=== PATIENT | female | born 1955 | race Caucasian/White ===

== ENCOUNTER 2018-09-10 08:54 | Outpatient (REF) | payer OTHER, SELFPAY ==
--- NOTE | 2018-09-10 08:30 | PAPFT_PTH ---
PATIENT: Gerda Bryant LOC: [facility] U#:[id number] AGE/SX: 62/F ROOM: RE09/10/[address]: LEVON Chaves : 1955 BED: DIS: 09/10/2018 SPEC #: [id number] RECD: 09/10/18 12:39 STATUS: NOVA REQ #: [id number] ADDIE: 09/10/18 08:[address]: Stephania Raymond DEPT: [facility] Cytology RECD BY: Miracle Cash ENTERED: 09/10/18 12:39 SP TYPE: PAPFT OT DR: Mg Brady MD Tissues: 1 - CX/ENDOCX FOR PAP SMEARS Procedures: PAP THIN PREP/UVM Screening HPV DNA PROBE Comments: [id number]
== END 2018-09-10 09:14 ==
LOC: LBN 08:54
PROVIDERS: PCP Family Medicine; Visit Provider Nurse Practitioner Family
DX: Z12.4 Encounter for screening for malignant neoplasm of cervix (principal); Z11.51 Encounter for screening for human papillomavirus (HPV)
CPT/HCPCS: 88142; 87624

== ENCOUNTER 2018-10-01 00:24 | Outpatient (CLI) | payer OTHER, SELFPAY ==
--- NOTE | 2018-10-01 08:52 | DI.MAMMO_ITS ---
SYMPTOM/DIAGNOSIS: SCREENING, PERSONAL H/O BREAST CA, Z12.31 MAMMOGRAMS: Mammograms were interpreted according to the usual protocol including computer analysis with CAD system, tomosynthesis and C view imaging. Comparison is made with prior examinations. The patient is status post left mastectomy. Breast density, Category B. No suspicious masses or microcalcifications are seen. There does appear to be interval decrease in size of the nodular density seen in the upper inner quadrant of the right breast. No new or suspicious nodules are seen. The skin and axilla are unremarkable. IMPRESSION: No definite evidence for malignancy. Yearly mammography is recommended. Category 2. MQSA ASSESSMENT OF FINDINGS: Negative with benign findings. Category 2. Patient will receive a letter notifying them of these results. BI-RADS category B. There are scattered areas of fibroglandular density.
== END 2018-10-01 00:44 ==
PROVIDERS: PCP Family Medicine; Visit Provider Nurse Practitioner Family
DX: Z12.31 Encounter for screening mammogram for malignant neoplasm of breast (principal); Z85.3 Personal history of malignant neoplasm of breast
CPT/HCPCS: 77063; 77067

== ENCOUNTER 2019-04-30 15:11 | Outpatient (CLI) | payer OTHER, SELFPAY ==
[2019-04-30 15:38] LABS: HCT 40.3 % (36.0-46.0); HGB 13.3 g/dL (12.0-15.5); Mean Corpuscular Hemoglobin 29.7 pg (27.0-33.0); Mean Platelet Volume 9.1 fL (8.0-11.0); Platelet Count 369 x1000/uL (130-400); RBC 4.48 m/cumm (4.00-5.20); RBC Distribution Width 14.5 % (11.7-14.6); White Blood Cell Count 10.92 k/cumm (4.4-10.8)
[2019-04-30 16:02] LABS: D-Dimer 1899 ng/mlFEU (<500)
[2019-04-30 16:35] LABS: CREATININE 0.71 mg/dL (0.55-1.02); TSH (W/Ref FT4) 0.63 uIU/mL (0.36-3.74)
[2019-04-30 16:41] LABS: GGT 222 U/L (5-55)
== END 2019-04-30 15:31 ==
PROVIDERS: PCP Family Medicine; Visit Provider Family Medicine
DX: R00.0 Tachycardia, unspecified (principal)
CPT/HCPCS: 36415; 85027; 82565; 82977; 84443; 85379

== ENCOUNTER 2019-04-30 16:54 | Emergency (ER) | payer OTHER, SELFPAY ==
[2019-04-30 17:02] VITALS: BP 138/90; PULSE 101; RESP 18; TEMP 37; O2SAT 99
--- NOTE | 2019-04-30 17:13 | DI.CT_ITS ---
EXAM: CT CHEST PE CTA CLINICAL HISTORY: elevated dimer, r/o PE. TECHNIQUE: COMPARISON: No exams were available for comparison FINDINGS: CT angiography of the chest was performed with bolus infusion of 100 cc of Omnipaque 350. Images obt ained through the upper abdomen show unremarkable appearance of visualized portions of liver spleen a drenals kidneys and pancreas. The lungs appear generally clear. No pleural effusion seen. No media stinal or hilar adenopathy. Tracheobronchial tree appears intact. Thoracic aorta is ectatic at about 42 millimeters maximal diameter. There is Lázaro then take area of decreased attenuation in the right main pulmonary artery, this is most likely artifactual, chronic p ulmonary embolus not excluded. No acute pulmonary embolus identified. IMPRESSION: Ectatic thoracic aorta at 42 millimeters A questionable findings in the right main pulmonary artery, question artifact, chronic thrombus not e xcluded. No evidence of acute pulmonary embolus.
--- NOTE | 2019-04-30 17:15 | W.ED.GENAD ---
Discharge Plan Disposition Patient Disposition: HOME Condition: Stable Discharge Details Chief Complaint: Palpitatns Clinical Impression: Suspected pulmonary embolism, D-dimer, elevated, Aortic aneurysm, descending Primary Care Provider: Mg Brady ED Provider: Bryson García Home Meds and New Rx's Prescriptions: New Xarelto 15 mg tablet 15 mg PO BID 21 Days Qty: 42 RF: 0 Discharge Instructions Instructions: Pulmonary Embolism (GEN), Deep Venous Thrombosis (ED), Blood Thinners (ED) Additional Instructions: At this time the CT scan appears to show artifact, meaning that there is not a blood clot however I still have concern that there is certainly may be a blood clot there. The CT scan will be reread by our radiologist Friday. Please return Friday for the ultrasound of your lower extremity to rule out blood clot. In the meantime please take the Xarelto, 15 mg p.o. twice daily first prophylaxis of potential clot. If you notice any worsening of your symptoms, or any new symptoms such as vomiting, diarrhea, fever, chills, shortness of breath, chest pain, numbness, weakness, or fainting , please return immediately to the emergency department for reevaluation. Please follow up with your primary care provider as soon as possible for reassessment and reevaluation. As always, it was a pleasure participating in your medical care today. Referrals: Mg Brady. [Primary Care Provider] - Medical Decision Making This is a 63-year-old female who presents today for evaluation of palpitations. Patient states that one week ago she had mild posterior popliteal tenderness without evidence of trauma long trips surgeries or procedures. She then developed some palpitations along afterwards which resolved on their own. She went to see her PCP today for further evaluation and her d-dimer was notably elevated at 1999. She was sent to the ER for further assessment. She has no risk factors for PE except for previous malignancy. She denies any symptoms whatsoever of chest pain, shortness of breath, chest heaviness or tightness, numbness tingling weakness, or hemoptysis. Physical exam is notably benign. EKG unremarkable. No signs of right heart strain. We will get a CTA for evaluation of potential PE and reassess. 7 PM Laboratory work-up has returned, white count normal, INR PT and PTT and normal, electrolytes normal poor renal function stable, troponin less than 0.05, proBNP normal. EKG shows no evidence of significant right heart strain. CT scan was ordered and per virtual radiology demonstrates no evidence of acute thrombus. There is an atypical component on the imaging which does show an atypical anterior segment of the right main pulmonary artery neck can be seen with an eccentric or chronic PE, however virtual radiology that this is more so a reflection of motion artifact rather than a true PE. However with the patient's notably elevated d-dimer, and the atypical finding on the CT scan I do feel that further work-up is indicated. We will schedule an ultrasound for Friday when it is available. I had a long discussion with the patient regarding the atypical findings on the CT scan, as well as the risks and benefits of anticoagulation therapy until the ultrasound and repeat created by in-house radiologist. At this time weighing the risks and benefits patient would like to go ahead and start anticoagulation. We will start the patient on 15 mg of Xarelto twice daily. She will follow-up on Friday for ultrasound of her left lower extremity where she had her initial symptoms, and will reassess at that time. Currently the patient signs and symptoms are clinically inconsistent with a massive PE causing hemodynamic compromise, ACS, aortic dissection. Also of note there was evidence of a 4 cm descending aortic aneurysm which appears stable. No evidence of dissection. I have extensively reviewed the treatment plan and discharge instructions with the patient and their family. I have addressed all patient concerns at this time. The patient and family was made aware of what symptoms to monitor for that would warrant a return to the emergency department. Discussed the plan with the patient and family, they demonstrate verbal understanding and agreement with our assessment and plan at this time. EKG 17: 13 Rate 93, intervals normal, sinus rhythm, no significant ST elevations or depressions, there is a T wave inversion in V1. There is small Q wave in lead II and III, no broad terminal S wave, no other abnormalities. No evidence of STEMI. No evidence of significant right heart strain FINDINGS: Pulmonary arteries: Eccentric hypodensities in the right pulmonary artery on image 230 series 6 are felt to be related to motion artifact. There are no other discrete filling defect appreciated within the pulmonary arterial system. Pulmonary arterial system is otherwise normal in course and caliber. Great vessels off aortic arch: Normal branching pattern to the aortic arch vessels. Aorta: Aneurysmal dilation of the mid descending thoracic aorta measuring 4 cm in greatest diameter. No acute aortic pathology is appreciated. Lungs: Mild bilateral apical capping. No acute interstitial or airspace disease is appreciated. There is subpleural atelectasis of the dependent portions of the lungs. Pleural space: Unremarkable. No pneumothorax. No pleural effusion. Heart: Unremarkable. No cardiomegaly. No pericardial effusion. Lymph nodes: Unremarkable. No enlarged lymph nodes. Bones/joints: No acute abnormality or aggressive osseous lesion. Soft tissues: Question of left mastectomy. No acute thoracic wall so evident ft tissue findings. Other findings: The visualized intra-abdominal structures demonstrate no acute findings. IMPRESSION: 1. Findings in the anterior segment of the right main pulmonary artery could be seen with an eccentric/chronic PE, however considering that similar findings are seen in the posterior segment as well, artifact from cardiac motion is also likely. Consider followup if clinically warranted. No acute PE is appreciated. 2. No other acute thoracic pathology is appreciated. THIS REPORT CONTAINS FINDINGS THAT MAY BE CRITICAL TO PATIENT CARE. The findings were verbally communicated via telephone conference with BRYSON GARCÍA at 6:05 PM EDT on 04/30/2019. The findings were acknowledged and understood. Thank [facility] General Date/Time Provider Initiated Documentation: 04/30/19 17:00. [facility] Narrative: This is a 63-year-old female with no past medical history except for history of breast cancer years ago, who presents today for evaluation of palpitations. Patient states that one week ago she had mild tenderness behind her left knee that was only present for a day and then resolved on its own. She noticed some mild palpitations at that time as well 5 days ago. However she states that all the symptoms resolved on their own. She went to see her PCP today who noticed that she was also tachycardic at that time, ordered a d-dimer which was notably positive and elevated at 2000. No other complaints, hemodynamically stable. She was sent to the ER for further assessment which is certainly reasonable. Currently the patient has no complaints whatsoever. She denies chest pain shortness of breath pleuritic chest pain. Denies PE risk factors such as recent long car rides, immobilization, recent surgery, prior history of DVT or PE, family history of PE or DVT, morbid obesity, exogenous estrogen and smoking, hemoptysis. She does have a risk factor of previous breast cancer years ago but nothing else. She did have a single mastectomy which completely resolved the malignancy. No other complaints modifying factors at this time. Related Data Home Medications Medication Instructions Recorded Confirmed rivaroxaban [Xarelto] 15 mg PO BID 21 Days #42 tab 04/30/19 Previous Rx's Medication Instructions Recorded rivaroxaban [Xarelto] 15 mg PO BID 21 Days #42 tab 04/30/19 Allergies Allergy/AdvReac Type Severity Reaction Status Date / Time No Known Allergies Allergy Verified 04/30/19 17:08 General Stated Complaint: Palpitatns SHAUNA: 3 Review of Systems Review of Systems ROS Unobtainable: All systems reviewed & are unremarkable except as noted in HPI and below PFSH Family History (Updated 04/30/19 @ 14:37 by Mg Brady) Mother Essential hypertension Neoplasm THYROID Aneurysm and dissection of heart ? asc. 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 3.ENT: Atraumatic external nose and ears. Moist MM. Neck: Symmetric, trachea midline, No thyromegaly. 4.CVS: +S1/S2, No murmurs or gallops. Peripheral pulses 2+ and equal in all extremities. Brisk capillary refill in all extremities. 5.RESP: Unlabored respiratory effort. Clear to auscultation bilaterally. No wheezes rales or rhonchi 6.GI: Soft, Nontender/Nondistended, No hepatosplenomegaly. No guarding or rebound. 7.MSK: Normocephalic/Atraumatic, Extremities w/o deformity or ttp No cyanosis or clubbing, Normal movement of all extremities, no calf tenderness, negative Homans sign. 8.Skin: Warm, Dry. No rashes or lesions. 9.Neuro: swimming pool cleaner II-XII grossly intact. Sensation grossly intact, no focal neurologic deficits. 10.Psych: (AAO) x3. Appropriate mood and affect Course Vital Signs Vital signs: Vital Signs Temperature 37 C 04/30/19 17:02 Pulse 101 H 04/30/19 17:02 Respiratory Rate 18 04/30/19 17:02 Blood Pressure 138/90 04/30/19 17:02 Pulse Oximetry 99 04/30/19 17:02 Temperature 37 C 04/30/19 17:02 Temperature Source Skin 04/30/19 17:02 Pulse 101 H 04/30/19 17:02 Respiratory Rate 18 04/30/19 17:02 Blood Pressure 138/90 04/30/19 17:02 Blood Pressure Position Sitting 04/30/19 17:02 Pulse Oximetry 99 04/30/19 17:02 Oxygen Delivery Method Room Air 04/30/19 17:02 Oxygen Flow Rate 0 04/30/19 17:02 Pain Level 0 04/30/19 17:02
[2019-04-30] MEDS: Normal Saline 1,000 ML 1000 ML IV (17:18)
[2019-04-30 17:25] LABS: Abs Immature Grans 0.03 k/cumm (0.0-0.09); Absolute Basophil Count 0.02 k/cumm (0.0-0.2); Absolute Eosinophil Count 0.07 k/cumm (0.0-0.7); Absolute Lymphocyte Count 1.67 k/cumm (1.2-3.4); Absolute Monocyte Count 1.01 k/cumm (0.11-0.7); Absolute Neutrophil Count 7.65 k/cumm (1.2-6.7); Basophils % 0.2; Eosinophils % 0.7; HCT 40.7 % (36.0-46.0); HGB 13.3 g/dL (12.0-15.5); Immature Grans % 0.3; Mean Corp. HGB Concentration 32.7 g/dL (32.0-36.0); Mean Corpuscular Hemoglobin 29.6 pg (27.0-33.0); Mean Corpuscular Volume 90.6 fL (80-95); Monocytes % 9.7; Neutrophils % 73.1; Platelet Count 346 x1000/uL (130-400); RBC 4.49 m/cumm (4.00-5.20); RBC Distribution Width 14.4 % (11.7-14.6); White Blood Cell Count 10.45 k/cumm (4.4-10.8)
[2019-04-30] MEDS: Omnipaque 350 MG/ML 100 ML BTL IJ (17:44)
[2019-04-30 17:54] LABS: ALT 35 U/L (14-59); AST 24 U/L (15-37); Albumin 3.7 g/dL (3.4-5.0); Alkaline Phosphatase 146 U/L (46-116); Anion Gap 9.8 mmol/L (3-11); BUN 14 mg/dL (7-18); Bilirubin, Total 0.4 mg/dL (0.2-1.0); CO2 28.2 mmol/L (21.0-32.0); CREATININE 0.79 mg/dL (0.55-1.02); Calcium 9.6 mg/dL (8.5-10.1); Chloride 103 mmol/L (98-107); Glucose 93 mg/dL (70-100); NT-proBNP 73 pg/mL; Potassium 3.5 mmol/L (3.5-5.1); Sodium 141 mmol/L (136-145); Total Protein 7.7 g/dL (6.4-8.2)
[2019-04-30 17:55] LABS: Troponin I < 0.05 ng/mL (0.00-0.06)
[2019-04-30 18:02] LABS: PTT Activated 26.7 sec (21.0-31.4); Prothrombin Time 9.8 sec (9.3-11.0)
[2019-04-30] MEDS: Rivaroxaban 15 MG TABLET PO (18:28)
[2019-04-30 18:33] VITALS: BP 150/88; PULSE 75; RESP 18; O2SAT 98
[2019-04-30 18:55] VITALS: BP 136/89; PULSE 74; RESP 18; TEMP 37.2; O2SAT 99
[2019-04-30 19:01] VITALS: BP 139/86; PULSE 89; TEMP 36.5
== END 2019-04-30 18:55 | disposition home or self-care (01) ==
PROVIDERS: Emergency Provider Student in an Organized Health Care Education/Training Program; PCP Family Medicine
DX: R91.1 Solitary pulmonary nodule (principal); I71.2 Thoracic aortic aneurysm, without rupture; R79.89 Other specified abnormal findings of blood chemistry
CPT/HCPCS: 36415; 71275; 80053; 93005; 96360; 99285; 83880; 84484; 85025; 85610; 85730; 93010; J3490

== ENCOUNTER 2019-05-03 06:57 | Outpatient (CLI) | payer OTHER, SELFPAY ==
--- NOTE | 2019-05-03 11:00 | DI.US_ITS ---
EXAM: US LOWER EXTREMITY VENOUS LT CLINICAL HISTORY: ELEVATED D-DIMER, POSTERIOR KNEE PAIN, ? DVT. TECHNIQUE: Ultrasound performed using standard protocol. COMPARISON: No exams were available for comparison FINDINGS: Ultrasound of the left leg reveals no evidence of DVT.
== END 2019-05-03 07:17 ==
PROVIDERS: PCP Family Medicine; Visit Provider Student in an Organized Health Care Education/Training Program
DX: M25.562 Pain in left knee (principal); R79.1 Abnormal coagulation profile
CPT/HCPCS: 93971

== ENCOUNTER 2019-07-01 03:18 | Outpatient (CLI) | payer OTHER, SELFPAY ==
[2019-07-01 10:13] LABS: D-Dimer 411 ng/mlFEU (<500)
== END 2019-07-01 03:38 ==
PROVIDERS: PCP Family Medicine; Visit Provider Family Medicine
DX: R79.89 Other specified abnormal findings of blood chemistry (principal)
CPT/HCPCS: 36415; 85379

== ENCOUNTER 2019-07-30 03:27 | Emergency (ER) | payer OTHER, SELFPAY ==
[2019-07-30] VITALS (15 sets, daily range): BP systolic 91–126; BP diastolic 73–88; PULSE 74–137; RESP 8–32; TEMP 36.1; O2SAT 93–99
--- NOTE | 2019-07-30 03:50 | ED.GENADUL_ITS ---
Discharge Plan Disposition Patient Disposition: HOME Condition: Good Discharge Details Chief Complaint: Palpitatns Clinical Impression: SVT (supraventricular tachycardia) Primary Care Provider: Mg Brady ED Provider: Chad Santizo Home Meds and New Rx's Prescriptions: Changed metoprolol tartrate 25 mg tablet 37.5 mg PO BID Qty: 180 RF: 3 Discharge Instructions Instructions: Supraventricular Tachycardia (ED) Additional Instructions: Please take 1-1/2 tablets of your metoprolol twice a day. Follow-up with your primary care next week. Please make appointment with cardiology within the next 2 to 3 weeks. Return to ED if you develop persistent palpitations that do not resolve with vagal maneuvers in 5 to 10 minutes. Return if you develop syncope, chest pain, shortness of breath. Referrals: [facility] [Provider Group] - 2 weeks (for SVT requiring adenosine to convert) Mg Brady [Primary Care Provider] - 1 week Medical Decision Making Patient found to be in an SVT. Vagal maneuvers and carotid massage without any change. Patient given 6 mg of adenosine with breaking of her SVT into sinus rhythm. She is currently on metoprolol 25 mg twice a day. Assuming electrolytes and TSH are fine like they were in April we will increase her dosage to 50 twice a day and refer to cardiology. Patient's laboratory studies are fine. She has remained in a sinus rhythm in the 80s. Blood pressure at times noticed to be a little soft. She reports that typically they are fine, if anything high. For now I will increase her to 1-1/2 tablets of the metoprolol twice a day. We will have her follow-up with her primary care next week and refer to cardiology for follow-up in a couple of weeks. Return to ED for recurrent symptoms that do not resolve after 5 or 10 minutes, chest pain, shortness of breath, syncope. Medical Records Medical records reviewed: Yes I reviewed the patient's medical records. Lab Data Lab results reviewed: Yes I reviewed the patient's lab results. ECG Data Attestation: I personally reviewed and interpreted this ECG (s) as follows: Interpretation: EKG #1: SVT at a rate of 135. Normal axis and intervals. Diffuse ST depressions throughout likely rate related. EKG #2: Sinus rhythm at a rate of 83. Normal axis and intervals. Normal ST segments. HPI General Mode of arrival: ambulatory . Date/Time Provider Initiated Documentation: 07/30/19 03:35 . Limitations to Documentation: no limitations . Information obtained by: patient, RN notes reviewed and old records reviewed . HPI Narrative: Patient presents to emergency department with palpitations. Patient reports waking up from a bad dream. Subsequently noticed heart racing which she thought would resolve as she calmed down but it did not. She has now had a heart racing and palpitation for about an hour. She denies any other symptomatology. There is no chest pain or pressure. There is no shortness of breath. There is no lightheadedness or dizziness. She has not been ill with any vomiting or diarrhea. There has been no fever. She had a similar event that only lasted maybe 5 minutes back in April. Subsequent work-up was questionable for PE but that was proven to probably be over-read by preliminary radiology. She did find out that she had an aortic aneurysm for which she has seen vascular at [facility]. For now they are simply watching it. As part of that work-up she did have an echo which revealed normal heart function with normal valves and normal aortic root. Related Data Home Medications Medication Instructions Recorded Confirmed metoprolol tartrate 37.5 mg PO BID #180 tab 07/30/19 Previous Rx's Medication Instructions Recorded metoprolol tartrate 37.5 mg PO BID #180 tab 07/30/19 Allergies Allergy/AdvReac Type Severity Reaction Status Date / Time No Known Allergies Allergy Verified 05/04/19 10:26 General Stated Complaint: Palpitatns SHAUNA: 2 Review of Systems Narrative: As documented in HPI otherwise negative as below. Const: no fever, chills, weakness Resp: no cough, SOB, pleuritic pain CV: no CP, diaphoresis, edema, syncope GI: no abdominal pain, nausea, vomiting, diarrhea Neuro: no headache, numbness, focal weakness, confusion [facility] Medical History (Updated 07/30/19 @ 03:58 by Chad Santizo MD) Hx of malignant neoplasm of female breast (Chronic) 1991- s/p mastectomy SVT (supraventricular tachycardia) (Acute) Thoracic aneurysm without mention of rupture (Acute) Surgical History Biopsy, Soft Tissue (09/29/17) right breast Breast, Mastectomy (~1991) left breast Family History (Updated 05/03/19 @ 08:44 by Rahul Deshpande) Mother Essential hypertension Aneurysm and dissection of heart ? asc. aorta Thyroid cancer Father , age 73 Essential hypertension Parkinson's disease Thyroid cancer Paternal Grandfather Heart disease Maternal Grandmother Essential hypertension Paternal Grandmother Heart disease Sister No problems noted. Sister No problems noted. Brother No problems noted. Brother No problems noted. Brother No problems noted. Brother No problems noted. Son No problems noted. Son No problems noted. Daughter No problems noted. 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 Pets and animals: No Sexually active: Yes Do you think of yourself as: straight/heterosexual Current gender identity: decline to answer What is your relationship status?: How often do you talk on the phone with friends or family?: three or more times per week How often do you get together with friends or relatives?: three or more times per week How often do you attend religion or buddhism services?: decline to answer Do you belong to any clubs or organized social groups?: yes Panel score (0-1 are the most socially isolated patients): 3 What type of physical activity do you participate in: none Frequency: does not exercise Daphney/Yazidi: Latter Day Special daphney needs: No Seatbelt use: always Drive intox or ride w/intox 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 Tachycardic with normal blood pressure. Normal room air pulse ox. Const: WDWN female in NAD. HEENT: NC/AT. Normal facial exam. Eyes: Normal conjunctiva and sclera. Neck: Supple. Trachea midline. No carotid bruit. Lungs: Normal respiratory effort. Lungs are clear. Cor: RRR without murmur/gallop. Good radial pulses. GI: Soft. NT/ND. No guarding or rebound. Neuro: A+O x 3. Normal mentation, speech, gait. No focal motor or sensory deficits noted. Ext: No C/C/E. Skin: Warm and dry without rash. Course Vital Signs Vital signs: Vital Signs Temperature 97.0 F L 07/30/19 03:32 Pulse 137 H 07/30/19 03:32 Respiratory Rate 20 07/30/19 03:32 Blood Pressure 126/84 07/30/19 03:32 Pulse Oximetry 93 L 07/30/19 03:32 Temperature 97.0 F L 07/30/19 03:32 Temperature Source Skin 07/30/19 03:32 Pulse 137 H 07/30/19 03:32 Respiratory Rate 20 07/30/19 03:32 Respiratory Effort 07/30/19 03:32 Blood Pressure 126/84 07/30/19 03:32 Pulse Oximetry 93 L 07/30/19 03:32 Oxygen Delivery Method Room Air 07/30/19 03:32 Oxygen Flow Rate 0 07/30/19 03:32 Pain Level 0 07/30/19 03:32
[2019-07-30] MEDS: Adenosine 6 MG/2 ML VIAL IVP (03:57)
--- NOTE | 2019-07-30 03:57 | NUR.NOTE ---
Nursing Note: Pt heart rate down to 88 after adenosine.
[2019-07-30 04:28] LABS: Anion Gap 10.2 mmol/L (3-11); BUN 16 mg/dL (7-18); CO2 28.8 mmol/L (21.0-32.0); CREATININE 0.85 mg/dL (0.55-1.02); Calcium 9.7 mg/dL (8.5-10.1); Chloride 105 mmol/L (98-107); Glucose 102 mg/dL (74-106); Potassium 3.7 mmol/L (3.5-5.1); Sodium 144 mmol/L (136-145)
[2019-07-30 04:35] LABS: Magnesium 1.8 mg/dL (1.8-2.4)
[2019-07-30 04:53] LABS: FREE T4 1.04 ng/dL (0.76-1.46)
== END 2019-07-30 06:20 | disposition home or self-care (01) ==
PROVIDERS: Emergency Provider Emergency Medicine; PCP Family Medicine
DX: I47.1 Supraventricular tachycardia (principal)
CPT/HCPCS: 36415; 80048; 93005; 96374; 99284; 83735; 84439; 84443; 93010; 99285; J0153

== ENCOUNTER 2019-08-12 03:53 | Outpatient (CLI) | payer OTHER, SELFPAY ==
--- NOTE | 2019-08-30 08:30 | W.ZIOMONITOR ---
Date of service: 08/30/19 Time of Service: 08:30 ZIO Patch [employer] Note: There is a 2-week ZIO patch ordered for an indication of supraventricular tachycardia. ?The patient was in normal sinus rhythm for the majority of the recording. ?There was one episode of supraventricular tachycardia which lasted 5 beats at a maximum rate of 124 bpm. ?There were isolated (less than 1%) supraventricular ectopic beats. ?There were no episodes of ventricular tachycardia and rare (less than 1%) single ventricular ectopic beats. ?There were no pauses greater than 3 seconds no evidence of atrial fibrillation and no episodes of high degree heart block. ?Patient triggered events were associated with sinus rhythm.
== END 2019-08-12 04:13 ==
PROVIDERS: PCP Family Medicine; Visit Provider Family Medicine
DX: I47.1 Supraventricular tachycardia (principal)
CPT/HCPCS: 0296T

== ENCOUNTER 2019-09-27 08:44 | Outpatient (CLI) | payer OTHER, SELFPAY | END 2019-09-27 09:04 | PROVIDERS: PCP Family Medicine; Visit Provider Internal Medicine Cardiovascular Disease | DX: I47.1 Supraventricular tachycardia (principal) | CPT/HCPCS: 93005; 93010 ==

== ENCOUNTER 2019-10-11 01:40 | Outpatient (CLI) | payer OTHER, SELFPAY ==
--- NOTE | 2019-10-11 08:00 | DI.MAMMO_ITS ---
EXAM: MG MAMMO SCREENING 60 MIN DUR CLINICAL HISTORY: Personal Hx breast Ca TECHNIQUE: Mammograms were interpreted according to the usual protocol including computer analysis w eBrisk Video CAD system, tomosynthesis and C-view imaging. COMPARISON: 2009 through 2018 FINDINGS: Right mammogram: The right breast is composed of scattered fibroglandular densities, Breast Density c ategory B. No suspicious masses or suspicious microcalcifications are seen. A stable area of nodularity is note d in the posteromedial breast. No skin thickening or abnormal axillary lymph nodes are seen. There has been no significant change from prior exams. IMPRESSION: BIRADS Category 2, negative mammogram with benign findings. Yearly screening mammography is recommen ded.
== END 2019-10-11 02:00 ==
PROVIDERS: PCP Family Medicine; Visit Provider Nurse Practitioner Family
DX: Z12.31 Encounter for screening mammogram for malignant neoplasm of breast (principal); Z85.3 Personal history of malignant neoplasm of breast; Z90.12 Acquired absence of left breast and nipple
CPT/HCPCS: 77063; 77067

== ENCOUNTER 2020-05-05 02:18 | Outpatient (CLI) | payer OTHER, SELFPAY ==
[2020-05-05 08:26] LABS: Calculated LDL 119 mg/dL (<100); Cholesterol 225 mg/dL (<200); Glucose 82 mg/dL (74-106); HDL Cholesterol 96 mg/dL (40-60); TSH (W/Ref FT4) 1.47 uIU/mL (0.36-3.74); Triglyceride 51 mg/dL (<150)
== END 2020-05-05 02:38 ==
PROVIDERS: PCP Family Medicine; Visit Provider Family Medicine
DX: E03.9 Hypothyroidism, unspecified (principal); E78.5 Hyperlipidemia, unspecified; R73.9 Hyperglycemia, unspecified
CPT/HCPCS: 36415; 80061; 82947; 84443

== ENCOUNTER 2020-10-19 12:07 | Outpatient (CLI) | payer MEDICARE, BC, SELFPAY ==
--- NOTE | 2020-10-19 06:45 | DI.MAMMO_ITS ---
EXAM: MG MAMMO SCREENING 60 MIN DUR CLINICAL HISTORY: breast cancer screening,S/P LT MASTECTOMY FOR BREAST CA,Z12.39 TECHNIQUE: Right full field digital CC and MLO mammographic images were obtained with 3D tomosynthes is and utilizing computer aided detection (CAD). COMPARISON: Available for comparison. FINDINGS: The patient is status post left mastectomy. Masses/Architectural Distortion: Stable right breast nodules are noted. No suspicious masses or area s of architectural distortion are identified. Microcalcifications: No suspicious pleomorphic-type are seen. Skin Thickening/Nipple Retraction: None. IMPRESSION: 1. No significant interval change with no specific features of malignancy noted. 2. Unless there is more urgent need, screening mammography is recommended, as per [employer] [employer] guidelines. BI-RADS Category 2 - Benign Findings Breast Density - Category B - Scattered areas of fibroglandular density Breast density category C or D implies that the patient has dense breast tissue. Dense breast tissue is very common and is not abnormal but dense breast tissue can make it harder to find cancer on a ma mmogram. Also, dense breast tissue may increase their breast cancer risk. This information about the result of the mammogram report was provided to the patient to raise their awareness. Use this report when you speak with the patient about their risks for breast cancer, which includes their family hist ory. At that time, you may recommend for more screening tests (Ultrasound or MRI) as they might be us eful based on their risk. A negative radiographic report should not delay biopsy if a dominant or clinically suspicious mass is present. Up to ten percent of cancers are not identified on mammography. A negative report may reinforce clinical impression. Adenosis and dense breasts may obscure an underlying neoplasm. False positive reports average 6 to 10%. Patient will receive a letter notifying them of these results.
== END 2020-10-19 12:27 ==
PROVIDERS: PCP Family Medicine; Visit Provider Nurse Practitioner Family
DX: Z12.31 Encounter for screening mammogram for malignant neoplasm of breast (principal); Z85.3 Personal history of malignant neoplasm of breast; Z90.12 Acquired absence of left breast and nipple
CPT/HCPCS: 77063; 77067

== ENCOUNTER → 2021-03-19 08:50 | Outpatient (BNVA) | payer MEDICARE, BC, SELFPAY | PROVIDERS: PCP Family Medicine; Visit Provider Internal Medicine Cardiovascular Disease | DX: I47.1 Supraventricular tachycardia (principal); I71.2 Thoracic aortic aneurysm, without rupture | CPT/HCPCS: 99214; 99213 ==

== ENCOUNTER 2021-06-19 10:10 | Outpatient (CLI) | payer MEDICARE, BC, SELFPAY ==
[2021-06-20 01:38] LABS: Calcium 9.2 mg/dL (8.5-10.1); Glucose 78 mg/dL (74-106)
[2021-06-20 01:39] LABS: Anion Gap 8.4 mmol/L (3-11); BUN 15 mg/dL (7-18); CO2 28.6 mmol/L (21.0-32.0); CREATININE 0.7 mg/dL (0.55-1.02); Calculated LDL 125 mg/dL (<100); Chloride 105 mmol/L (98-107); Cholesterol 237 mg/dL (<200); HDL Cholesterol 95 mg/dL (40-60); Potassium 4.3 mmol/L (3.5-5.1); Sodium 142 mmol/L (136-145); Triglyceride 87 mg/dL (<150)
== END 2021-06-19 10:11 | disposition home or self-care (01) ==
LOC: LOS 10:11
PROVIDERS: PCP Family Medicine; Visit Provider Family Medicine
DX: E87.1 Hypo-osmolality and hyponatremia (principal); E78.5 Hyperlipidemia, unspecified
CPT/HCPCS: 36415; 80048; 80061

== ENCOUNTER 2022-03-06 04:01 | Outpatient (CLI) | payer MEDICARE, BC, SELFPAY ==
[2022-03-06 12:02] LABS: TSH (W/Ref FT4) 1.18 uIU/mL (0.36-3.74)
== END 2022-03-06 04:02 | disposition home or self-care (01) ==
LOC: LBO 04:01
PROVIDERS: PCP Student in an Organized Health Care Education/Training Program; Visit Provider Student in an Organized Health Care Education/Training Program
DX: I47.1 Supraventricular tachycardia (principal); N28.9 Disorder of kidney and ureter, unspecified; Z83.49 Family history of other endocrine, nutritional and metabolic diseases
CPT/HCPCS: 36415; 84443

== ENCOUNTER → 2022-03-13 09:02 | Outpatient (CLI) | payer MEDICARE, BC, SELFPAY ==
--- NOTE | 2022-03-13 07:30 | DI.RAD_ITS ---
Exam(s) XR TOE LT SECOND EXAM: XR TOE LT SECOND CLINICAL HISTORY: 2nd toe MUCOID cyst - eval distal joint,M67.40. TECHNIQUE: 2D digital imaging was performed. Three views. COMPARISON: No exams were available for comparison FINDINGS: BONES: No acute fracture is present. No bony destructive lesion is seen. JOINTS: No dislocation present. Interphalangeal joint spaces are well maintained. SOFT TISSUE: Swelling around distal phalanx of 2nd toe. No discrete mass, foreign body or calcificat ion visible. IMPRESSION: Soft tissue swelling around 2nd toe. No bony abnormality. DATA REPOSITORY: RADIATION DOSE DELIVERED:
== END ==
PROVIDERS: PCP Student in an Organized Health Care Education/Training Program; Visit Provider Student in an Organized Health Care Education/Training Program
DX: M67.40 Ganglion, unspecified site (principal); R22.42 Localized swelling, mass and lump, left lower limb
CPT/HCPCS: 73660

== ENCOUNTER → 2022-04-08 02:42 | Outpatient (CLI) | payer MEDICARE, BC, SELFPAY ==
--- NOTE | 2022-04-08 07:30 | DI.MAMMO_ITS ---
Exam(s) MG MAMMO SCREENING 60 MIN DUR EXAM: MG MAMMO SCREENING 60 MIN DUR CLINICAL HISTORY: breast cancer screening, hx breast ca, Z12.39 TECHNIQUE: Bilateral full field digital CC and MLO mammographic images were obtained with 3D tomosyn thesis and utilizing computer aided detection (CAD). COMPARISON: Available for comparison. FINDINGS: Status post left mastectomy. Masses/Architectural Distortion: No suspicious masses or areas of architectural distortion. There is stable right breast nodules. Microcalcifications: No suspicious pleomorphic-type are seen. Skin Thickening/Nipple Retraction: None. IMPRESSION: 1. No significant interval change with no specific features of malignancy noted. 2. Unless there is more urgent need, screening mammography is recommended, as per [employer] guidelines. 3. Findings were discussed with the patient on the date of the examination. BI-RADS Category 2 - Benign Findings Breast Density - Category B - Scattered areas of fibroglandular density Breast density category C or D implies that the patient has dense breast tissue. Dense breast tissue is very common and is not abnormal but dense breast tissue can make it harder to find cancer on a ma mmogram. Also, dense breast tissue may increase their breast cancer risk. This information about the result of the mammogram report was provided to the patient to raise their awareness. Use this report when you speak with the patient about their risks for breast cancer, which includes their family hist ory. At that time, you may recommend for more screening tests (Ultrasound or MRI) as they might be us eful based on their risk. A negative radiographic report should not delay biopsy if a dominant or clinically suspicious mass is present. Up to ten percent of cancers are not identified on mammography. A negative report may reinforce clinical impression. Adenosis and dense breasts may obscure an underlying neoplasm. False positive reports average 6 to 10%. Patient will receive a letter notifying them of these results.
== END ==
PROVIDERS: PCP Student in an Organized Health Care Education/Training Program; Visit Provider Student in an Organized Health Care Education/Training Program
DX: Z12.31 Encounter for screening mammogram for malignant neoplasm of breast (principal); Z85.3 Personal history of malignant neoplasm of breast; Z90.12 Acquired absence of left breast and nipple
CPT/HCPCS: 77063; 77067

== ENCOUNTER → 2022-04-19 00:14 | Outpatient (CLI) | payer MEDICARE, BC, SELFPAY ==
--- NOTE | 2022-04-19 07:30 | DI.DEXA_ITS ---
Exam(s) XR DEXA BONE DENSITY W/WO DANYA EXAM: XR DEXA BONE DENSITY W/WO DANYA CLINICAL HISTORY: screening for osteoporosis in postmenopausal woman,z78.0, h/o breast ca TECHNIQUE: COMPARISON: No exams were available for comparison FINDINGS: Lateral Spine Image: Unremarkable. No compression deformities identified. Left hip: Total T-Score: -0.5 Total Z-Score: 0.8 T- and Z-scores: Within normal limits. No evidence of osteoporosis. Lumbar Spine: Total T-Score: -0.8 Total Z-Score: 1.1 T- and Z-scores: Within normal limits. IMPRESSION: No evidence of osteoporosis.
== END ==
PROVIDERS: PCP Student in an Organized Health Care Education/Training Program; Visit Provider Student in an Organized Health Care Education/Training Program
DX: Z77.22 Contact with and (suspected) exposure to environmental tobacco smoke (acute) (chronic) (principal); Z78.0 Asymptomatic menopausal state; Z13.820 Encounter for screening for osteoporosis
CPT/HCPCS: 77080

== ENCOUNTER 2022-10-03 12:36 | Outpatient (CLI) | payer MEDICARE, BC, SELFPAY ==
[2022-10-03 12:37] LABS: ALT 28 U/L (14-59); AST 19 U/L (15-37); Albumin 4.1 g/dL (3.4-5.0); Alkaline Phosphatase 73 U/L (46-116); Anion Gap 6.1 mmol/L (3-11); BUN 14 mg/dL (7-18); Bilirubin, Total 0.5 mg/dL (0.2-1.0); CO2 30.9 mmol/L (21.0-32.0); CREATININE 0.8 mg/dL (0.55-1.02); Calcium 9.7 mg/dL (8.5-10.1); Calculated LDL 108 mg/dL (<100); Chloride 104 mmol/L (98-107); Cholesterol 234 mg/dL (<200); Estimated GFR 80.21 (mL/min/1.73m2); Glucose 87 mg/dL (74-106); HDL Cholesterol 112 mg/dL (40-60); Potassium 4.3 mmol/L (3.5-5.1); Sodium 141 mmol/L (136-145); Total Protein 7.2 g/dL (6.4-8.2); Triglyceride 73 mg/dL (<150)
== END 2022-10-03 12:37 | disposition home or self-care (01) ==
LOC: LBO 12:37
PROVIDERS: PCP Student in an Organized Health Care Education/Training Program; Visit Provider Student in an Organized Health Care Education/Training Program
DX: E86.0 Dehydration (principal); E46 Unspecified protein-calorie malnutrition; R74.8 Abnormal levels of other serum enzymes; E78.89 Other lipoprotein metabolism disorders
CPT/HCPCS: 36415; 80053; 80061

== ENCOUNTER 2022-12-04 01:57 | Outpatient (CLI) | payer MEDICARE, BC, SELFPAY ==
--- NOTE | 2022-12-04 06:47 | DI.MRI_ITS ---
Exam(s) MR ABDOMEN WO/W EXAM: MR ABDOMEN WO/W CLINICAL HISTORY: F/U ABNL CT, HYPOATTEN FOCUS,ABD MASS,R19.00,R93.89,K31.89,K86.2 TECHNIQUE: Multiplanar multisequence MRI of the Abdomen was performed. CONTRAST MATERIAL: IV Contrast: 11 mL of Dotarem contrast administered. COMPARISON: CT CT CHEST PE CTA from 04/30/2019 FINDINGS: Liver: Unremarkable. Pancreas: Unremarkable. No evidence of mass. No ductal dilatation. Elongated fluid collection seen between the head of the pancreas and transverse duodenum measuring 2 0 x 9 by 6 millimeters. It is best seen on coronal sequences. It does not have a masslike appearanc e. No evidence of enhancement within or surrounding. Gallbladder and Bile Ducts: Unremarkable. Adrenals: Unremarkable. Kidneys: Unremarkable. Spleen: Unremarkable. A few tiny cysts are seen. Aorta: Unremarkable. Soft Tissues: Status post left mastectomy. Bone: Unremarkable. Lymph Nodes: Unremarkable. IMPRESSION: Elongated fluid collection superior to transverse duodenum and medial to the uncinate process of the pancreas without suspicious features. Follow-up could be considered in 3-6 months. DATA REPOSITORY:
[2022-12-04] MEDS: Normal Saline - Diluent 50 ML VIAL 25 ML IJ (08:04)
[2022-12-04] MEDS: Gadoterate meglumine 20 ML VIAL 11 ML IVP (08:05)
== END 2022-12-04 02:17 ==
LOC: DI 01:57
PROVIDERS: PCP Student in an Organized Health Care Education/Training Program; Visit Provider Student in an Organized Health Care Education/Training Program
DX: K31.89 Other diseases of stomach and duodenum (principal); K86.2 Cyst of pancreas; Q43.8 Other specified congenital malformations of intestine; Q45.3 Other congenital malformations of pancreas and pancreatic duct; R19.00 Intra-abdominal and pelvic swelling, mass and lump, unspecified site; R93.89 Abnormal findings on diagnostic imaging of other specified body structures
CPT/HCPCS: 74183

== ENCOUNTER → 2023-06-02 02:54 | Outpatient (CLI) | payer MEDICARE, BC, SELFPAY ==
--- NOTE | 2023-06-02 07:15 | DI.MAMMO_ITS ---
Exam(s) MG MAMMO SCREENING 60 MIN DUR EXAM: MG MAMMO SCREENING 60 MIN DUR CLINICAL HISTORY: breast cancer screening,personal h/o breast ca,abnl imaging,post mastectomy. TECHNIQUE: Bilateral full field digital CC and MLO mammographic images were obtained with 3D tomosyn thesis and utilizing computer aided detection (CAD). COMPARISON: Prior mammograms were reviewed. FINDINGS: There has been no significant change in the appearance and distribution of the fibroglandular tissue. There are no new spiculated masses nor malignant appearing microcalcification groups. A few benign-a ppearing microcalcifications are again noted. Small benign-appearing nodules located inferolaterally in the right breast are unchanged from prior s tudies and have the appearance of benign intramammary lymph nodes. There is no significant architectural distortion nor skin thickening-retraction. IMPRESSION: Stable benign-appearing right breast findings. No radiographic evidence of malignancy. BI-RADS Category 2 - Benign Findings Breast Density - Category B - Scattered areas of fibroglandular density Breast density Category C or D implies that the patient has dense breast tissue. Dense breast tissue can make it harder to find cancer on a mammogram. Dense breast tissue is also associated with an incr eased risk of breast cancer. This information about the result of the mammogram report was provided to the patient to raise their awareness. Use this report when you speak with the patient about their risks for breast cancer, which includes their family history. At that time, you may recommend additional screening tests (Ultrasoun d or MRI) as these tests may add significant information. A negative radiographic report should not delay biopsy if a dominant or clinically suspicious mass is present. Up to ten percent of cancers are not identified on mammography. A negative report may reinforce clinical impression. Adenosis and dense breasts may obscure an underlying neoplasm. False positive reports average 6 to 10%. Patient will receive a letter notifying them of these results.
== END ==
PROVIDERS: PCP Student in an Organized Health Care Education/Training Program; Visit Provider Student in an Organized Health Care Education/Training Program
DX: N64.89 Other specified disorders of breast (principal); Z90.12 Acquired absence of left breast and nipple; Z12.31 Encounter for screening mammogram for malignant neoplasm of breast
CPT/HCPCS: 77063; 77067

== ENCOUNTER → 2023-07-23 03:48 | Outpatient (CLI) | payer MEDICARE, BC, SELFPAY ==
--- NOTE | 2023-07-23 07:59 | DI.CT_ITS ---
Exam(s) CT ABDOMEN PELVIS W EXAM: CT ABDOMEN PELVIS W CLINICAL HISTORY: ? diverticulitis,pancreatitis,FLUID COLLECTION PANCREAS,CYST,K86.2,K86.89. TECHNIQUE: Imaging Protocol: Axial computed tomography images with coronal and sagittal reformatted images were created and reviewed CONTRAST MATERIAL: Intravenous: Omnipaque 350 Contrast volume:100 ml Oral: yes / COMPARISON: CT CT CHEST PE CTA from 04/30/2019 MR MR ABDOMEN WO/W from 12/04/2022 FINDINGS: ABDOMEN and PELVIS: Lung Bases: No acute findings. Liver: Normal density. No measurable mass. Gallbladder and biliary tract: No radiodense calculus or dilation. Pancreas: Normal density. No abnormal calcifications or inflammatory process. No evidence of mass. Elongated fluid collection has mildly decreased in size when compared with previous CT and MRI, measu ring 16 x 5 millimeters. It is of doubtful clinical significance. Spleen: Normal. Kidneys: Normal size, contour and axis. No radiodense stones. No obstructive uropathy. No suspicious masses seen. Adrenal glands: No masses seen. Vasculature: Abdominal aorta non-dilated. Soft tissues: Unremarkable. Bladder: No gross wall thickening. No calculi.No focal mass. Bowel: No obstruction. Diverticulosis the sigmoid. inflammation in the mid sigmoid. No perforation or abscess. Appendix normal.Moderate to large quantity of stool. Peritoneal cavity: No ascites. No focal collection. Bones: Unremarkable for age. Degenerative disc changes at L4-5. Reproductive organs: Uterine fibroids. Lymph nodes: Unremarkable. IMPRESSION:: Acute sigmoid diverticulitis. No perforation or abscess. Decreased size of small fluid collection between pancreas and duodenum. No suspicious features. RADIATION DOSE DELIVERED: Total DLP DATA REPOSITORY: All CT scans at this facility are submitted to the National Radiology Data Registry (NRDR) Dose Index Registry (DIR) with the [employer] (ACR). RADIATION OPTIMIZATION: All CT scans at this facility use at least one of these dose optimization te chniques: automated exposure control; mA and/or kV adjustment per patient size (includes targeted exa ms where dose is matched to clinical indication); or iterative reconstruction.
[2023-07-23 13:04] LABS: Abs Immature Grans 0.06 10^3/uL (0.0-0.06); Absolute Basophil Count 0.04 10^3/uL (0.0-0.2); Absolute Eosinophil Count 0.05 10^3/uL (0.0-0.7); Absolute Lymphocyte Count 2.02 10^3/uL (1.2-3.4); Absolute Monocyte Count 0.58 10^3/uL (0.1-0.8); Absolute Neutrophil Count 7.77 10^3/uL (1.2-6.7); Basophils % 0.4; Eosinophils % 0.5; HCT 45.5 % (36.0-46.0); HGB 14.7 g/dL (11.2-15.7); Immature Grans % 0.6; Lymphocytes % 19.2; MCH 29.4 pg (27.0-33.0); MCHC 32.3 % (32.0-36.0); MCV 91 fL (80-95); MPV 8.7 fL (8.0-11.0); Monocytes % 5.5; Neutrophils % 73.8; Platelet Count 411 10^3/uL (130-400); WBC 10.52 10^3/uL (4.4-10.8)
[2023-07-23] MEDS: Barium Sulfate 2% W/V-Creamy Vanilla Smoothie 450 ML BTL PO (13:04)
[2023-07-23] MEDS: Barium Sulfate 2% W/V-Berry Smoothie 450 ML BTL PO (13:04)
[2023-07-23 13:20] LABS: Anion Gap 7.9 mmol/L (3-11); BUN 15 mg/dL (7-18); CO2 28.1 mmol/L (21.0-32.0); CREATININE 0.8 mg/dL (0.55-1.02); Chloride 100 mmol/L (98-107); Estimated GFR 80.21 (mL/min/1.73m2); Glucose 92 mg/dL (74-106); Lipase 84 U/L (16-77); Potassium 3.8 mmol/L (3.5-5.1); Sodium 136 mmol/L (136-145)
[2023-07-23] MEDS: Normal Saline - Diluent 50 ML VIAL IJ (15:00)
[2023-07-23] MEDS: Omnipaque 350 MG/ML 100 ML BTL IJ (15:00)
== END ==
PROVIDERS: PCP Student in an Organized Health Care Education/Training Program; Visit Provider Student in an Organized Health Care Education/Training Program
DX: I10 Essential (primary) hypertension; K57.32 Diverticulitis of large intestine without perforation or abscess without bleeding; K86.2 Cyst of pancreas; K86.89 Other specified diseases of pancreas
CPT/HCPCS: 80048; 83690; 74177; 85025; J3490

== ENCOUNTER 2023-09-23 03:10 | Outpatient (CLI) | payer MEDICARE, BC, SELFPAY ==
[2023-09-23 07:30] LABS: Abs Immature Grans 0.02 10^3/uL (0.0-0.06); Absolute Basophil Count 0.03 10^3/uL (0.0-0.2); Absolute Eosinophil Count 0.07 10^3/uL (0.0-0.7); Absolute Lymphocyte Count 1.81 10^3/uL (1.2-3.4); Absolute Monocyte Count 0.45 10^3/uL (0.1-0.8); Absolute Neutrophil Count 2.47 10^3/uL (1.2-6.7); Basophils % 0.6; Eosinophils % 1.4; HCT 43.1 % (36.0-46.0); Immature Grans % 0.4; Lymphocytes % 37.3; MCH 29.5 pg (27.0-33.0); MCHC 32.5 % (32.0-36.0); MCV 91 fL (80-95); MPV 9.4 fL (8.0-11.0); Monocytes % 9.3; Platelet Count 262 10^3/uL (130-400); RBC 4.75 10^6/uL (3.93-5.22); RDW 13.9 % (11.7-14.6); RDW-SD 46.7 fL; WBC 4.85 10^3/uL (4.4-10.8)
[2023-09-23 07:56] LABS: ALT 34 U/L (14-59); AST 22 U/L (15-37); Albumin 3.9 g/dL (3.4-5.0); Alkaline Phosphatase 80 U/L (46-116); Anion Gap 8.7 mmol/L (3-11); BUN 16 mg/dL (7-18); Bilirubin, Total 0.4 mg/dL (0.2-1.0); CO2 28.3 mmol/L (21.0-32.0); CREATININE 0.8 mg/dL (0.55-1.02); Calcium 9.6 mg/dL (8.5-10.1); Chloride 103 mmol/L (98-107); Estimated GFR 79.71 (mL/min/1.73m2); Glucose 90 mg/dL (74-106); Potassium 4.1 mmol/L (3.5-5.1); Sodium 140 mmol/L (136-145); TSH (W/Ref FT4) 1.25 uIU/mL (0.36-3.74); Total Protein 7.2 g/dL (6.4-8.2)
[2023-09-23 08:08] LABS: Calculated LDL 138 mg/dL (<100); Cholesterol 244 mg/dL (<200); HDL Cholesterol 92 mg/dL (40-60); Triglyceride 73 mg/dL (<150)
== END 2023-09-23 03:11 | disposition home or self-care (01) ==
LOC: LBO 03:10
PROVIDERS: Absent Provider Student in an Organized Health Care Education/Training Program; PCP Student in an Organized Health Care Education/Training Program; Visit Provider Student in an Organized Health Care Education/Training Program
DX: R74.8 Abnormal levels of other serum enzymes (principal); Z13.220 Encounter for screening for lipoid disorders; Z91.89 Other specified personal risk factors, not elsewhere classified; I47.10 Supraventricular tachycardia, unspecified; Z13.1 Encounter for screening for diabetes mellitus
CPT/HCPCS: 36415; 80053; 80061; 84443; 85025

== ENCOUNTER 2024-07-02 06:53 | Emergency (ER) | payer MEDICARE, BC, SELFPAY ==
[2024-07-02] VITALS (25 sets, daily range): BP systolic 132–165; BP diastolic 83–103; PULSE 60–83; RESP 12–22; TEMP 36.6; O2SAT 96–98
--- NOTE | 2024-07-02 06:45 | RT.EKG_ITS ---
APPROVED REPORT Exam: Resting ECG Reason for Exam: chest pain Patient Location: E HR:87 bpm ECG Measurements Heart Rate 87 AXIS MN 195 P 39 QRSd 82 QRS 5 QT 382 T 20 QTc 461 Conclusion Sinus rhythm...normal P axis, V-rate 60- 99
[2024-07-02 07:26] LABS: Abs Immature Grans 0.02 10^3/uL (0.0-0.06); Absolute Basophil Count 0.03 10^3/uL (0.0-0.2); Absolute Eosinophil Count 0.08 10^3/uL (0.0-0.7); Absolute Lymphocyte Count 2.09 10^3/uL (1.2-3.4); Absolute Monocyte Count 0.62 10^3/uL (0.1-0.8); Absolute Neutrophil Count 2.65 10^3/uL (1.2-6.7); Basophils % 0.5 %; Eosinophils % 1.5 %; HCT 44.5 % (36.0-46.0); HGB 14.5 g/dL (11.2-15.7); Immature Grans % 0.4 %; Lymphocytes % 38.1 %; MCH 29.9 pg (27.0-33.0); MCHC 32.6 % (32.0-36.0); MCV 92 fL (80-95); MPV 9.2 fL (8.0-11.0); Monocytes % 11.3 %; Neutrophils % 48.2 %; Platelet Count 286 10^3/uL (130-400); RBC 4.85 10^6/uL (3.93-5.22); RDW 14.1 % (11.7-14.6); RDW-SD 47.9 fL; WBC 5.49 10^3/uL (4.4-10.8)
[2024-07-02 07:44] LABS: ALT 49 U/L (14-59); AST 34 U/L (15-37); Alkaline Phosphatase 105 U/L (46-116); Anion Gap 7.4 mmol/L (3-11); BUN 18 mg/dL (7-18); Bilirubin, Total 0.32 mg/dL (0.2-1.0); CO2 29.6 mmol/L (21.0-32.0); CREATININE 1.1 mg/dL (0.55-1.02); Calcium 9.4 mg/dL (8.5-10.1); Chloride 105 mmol/L (98-107); Estimated GFR 54.39 (mL/min/1.73m2); Glucose 94 mg/dL (74-106); Potassium 3.8 mmol/L (3.5-5.1); Sodium 142 mmol/L (136-145); Total Protein 7.4 g/dL (6.4-8.2)
[2024-07-02 07:45] LABS: Troponin I < 4 ng/L (<or=51)
[2024-07-02] MEDS: Omnipaque 350 MG/ML 100 ML BTL IJ (07:47)
[2024-07-02] MEDS: Normal Saline - Diluent 50 ML VIAL IJ (07:48)
--- NOTE | 2024-07-02 07:48 | DI.CT_ITS ---
Exam(s) CT THORAX ABD/PEL CTA EXAM: CT THORAX ABD/PEL CTA CLINICAL HISTORY: chest pain, known aneurysm 4.3cm 11/01. TECHNIQUE: Imaging Protocol: Axial computed tomography images with coronal and sagittal reformatted images were created and reviewed CONTRAST MATERIAL: Intravenous: Omnipaque 350 Contrast volume:100 ml Oral: None COMPARISON: CT CT CHEST PE CTA from 04/30/[address] ABDOMEN PELVIS W from 07/23/2023 FINDINGS: CHEST: AORTA: The ascending thoracic aorta is again noted be enlarged, measuring 4.2 cm, similar to previous . The diameter of the mid aortic arch is normal as is the diameter of the descending thoracic aorta. There is no evidence of aortic rupture nor aortic dissection. No pericardial effusion. Heart size is upper normal. There is no evidence of abdominal aortic aneurysm nor significant atherosclerotic involvement of the main vessels off the abdominal aorta including the celiac and SMA and renal arteri es. The inferior mesenteric artery is patent. The aortic bifurcation appears unremarkable. There i s no aneurysmal dilatation or significant stenosis in the iliac arteries and common femoral arteries. PULMONARY ARTERIES: Well opacified. There are no intraluminal filling defects to suggest presence of pulmonary emboli. LUNGS: No left lung findings. There is small focus of pleural thickening in lateral aspect of the ri ght upper lobe (series 16/image 49). May represent small sessile nodule or noncalcified pleural plaq ue. However, the central aspect of this appears fat density. This is most probably benign.. There are no metastatic appearing lung nodules in this patient who has had prior left mastectomy.. MEDIASTINUM: There is no hilar nor mediastinal adenopathy. CARDIAC: Heart size upper normal. No pericardial effusion. ABDOMEN: There is no ascites. LIVER: There are no focal hepatic lesions nor dilatation of intrahepatic ducts. GALLBLADDER/BILIARY: No obvious gallbladder pathology. CBD is not dilated. PANCREAS: No evidence of pancreatic mass nor dilatation of the pancreatic duct. SPLEEN: Spleen is not enlarged. There are no intrasplenic lesions. Splenic and portal veins are drew nt. ADRENALS: There are no significant adrenal masses. KIDNEYS: No cysts evident. No calculi nor hydronephrosis. No solid renal masses. ABDOMINAL AORTA: The abdominal aorta is not enlarged. LYMPH NODES: There is no retroperitoneal nor para-aortic adenopathy. No obvious mesenteric masses. ABDOMINAL WALL: No evidence of significant anterior abdominal wall hernia. GI: There is no evidence of bowel obstruction, free air, nor abscess. PELVIS: LYMPH NODES: There is no intrapelvic nor inguinal adenopathy. GI: No evidence of appendicitis.There is sigmoid diverticulosis. No evidence of obvious acute divert iculitis. Diverticular are also seen in the descending-left colon without diverticulitis. URINARY BLADDER: No calculi nor masses evident REPRODUCTIVE: Uterus and adnexal regions unremarkable. No free fluid in the pelvis. OSSEOUS: No significant osseous lesions. No fractures. Chronic degenerative disc disease lower lumb ar spine noted. No listhesis. IMPRESSION: 1. There is dilatation of the ascending thoracic aorta to a diameter of 4.2 cm which is unchanged fro m prior CT scan of 04/30/2019. There is no evidence of aortic dissection nor pericardial effusion. 2. No evidence of abdominal aortic aneurysm nor dissection. Iliac and common femoral arteries also u nremarkable. 3. No evidence of acute pulmonary emboli nor pulmonary infarct. No infiltrates nor pleural effusions . 4. Small focal benign-appearing pleural thickening in the lateral aspect of the right upper lobe exhi bits benign appearance and unchanged from 2019. There are no metastatic lung nodules in this patient with history of previous left mastectomy. 5. extensive sigmoid diverticulosis without evidence of obvious acute diverticulitis. Report called by myself to ER physician 07/02/2024 8:20 a.m. RADIATION DOSE DELIVERED: 309.74mGy.cm Total DLP DATA REPOSITORY: All CT scans at this facility are submitted to the National Radiology Data Registry (NRDR) Dose Index Registry (DIR) with the [employer] (ACR). RADIATION OPTIMIZATION: All CT scans at this facility use at least one of these dose optimization te chniques: automated exposure control; mA and/or kV adjustment per patient size (includes targeted exa ms where dose is matched to clinical indication); or iterative reconstruction.
[2024-07-02] MEDS: Normal Saline Flush 10 ML SYR IVP (08:20)
--- NOTE | 2024-07-02 08:27 | W.ED.GENAD ---
Discharge Plan Disposition Patient Disposition: Home Condition: Stable Discharge Details Clinical Impression: Chest pain, Diverticulosis Primary Care Provider: Liat Chang ED Provider: Donnie Abreu Home Meds and New Rx's Prescriptions: Continued (DME) Breast Prosthesis Left See Rx Instructions .Route .MEDSUPPLY Qty: 1 0RF Rx Instructions: Left Breast Mastectomy: new breast prosthesis and mastectomy bras. (DME) Mastectomy Bras See Rx Instructions .Route .MEDSUPPLY Qty: 4 1RF Rx Instructions: I am in need of a prescription for a new breast prosthesis and mastectomy bras. I have to go to [facility] in [facility]. PreserVision AREDS 2,148 mcg-113 mg-45 mg-17.4mg tablet 1 tab PO DAILY Rx Instructions: administer with AM and PM meals metoprolol tartrate 25 mg tablet 25 mg PO BID Qty: 180 3RF Discharge Instructions Instructions: Chest Pain, Adult ED Additional Instructions: Please contact your primary care physician to arrange follow-up. Return to the ER immediately for any worsening or new concerning symptoms. Referrals: Liat Chang DO [Primary Care Provider] - HPI General Mode of arrival: ambulatory. Date/Time Provider Initiated Documentation: 07/02/24 07:10. Limitations to Documentation: no limitations. Information obtained by: patient. HPI Narrative: 68-year-old female with history of thoracic aortic aneurysm here with chief complaint of chest pain. Patient notes this morning at 630 she woke up and went to the bathroom. When she returned to bed and lie down she had sudden onset of severe central chest pain that lasted about 30 seconds. Pain resolved and she experienced a sensation of fluid flowing from her upper chest to her feet. The sensation resolved after brief period. At this time she is asymptomatic with no chest pain or shortness of breath. No abdominal pain. Thoracic aortic aneurysm was 4.3 cm in [place] [facility] [place] Related Data Home Medications ?Medication ?Instructions ?Recorded ?Confirmed Breast Prosthesis #1 ea 10/09/22 07/02/24 Mastectomy Bras #4 ea 10/09/22 07/02/24 vitamins A,C,T-sxls-uykich 2,148 1 tab PO DAILY 10/21/23 07/02/24 mcg-113 mg-45 mg-17.4 mg tablet (PreserVision AREDS) metoprolol tartrate 25 mg tablet 25 mg PO BID #180 tabs 08/01/24 11/22/24 Previous Rx's ?Medication ?Instructions ?Recorded Breast Prosthesis #1 ea 10/09/22 Mastectomy Bras #4 ea 10/09/22 metoprolol tartrate 25 mg tablet 25 mg PO BID #180 tabs 03/11/24 Allergies Allergy/AdvReac Type Severity Reaction Status Date / Time No Known Allergies Allergy Verified 07/02/24 07:01 General Stated Complaint: Chest Pain SHAUNA: 3 Review of Systems All systems reviewed & are unremarkable except as noted in HPI and below Constitutional Constitutional: Denies fever(s) Cardiovascular Cardiovascular: Reports as per HPI and Denies lightheadedness Exam Const General: cooperative and no acute distress HENMT Mouth: moist mucous membranes Eyes Conjunctivae: normal conjunctivae Sclera: normal sclerae Neck Neck: trachea midline and supple Resp Auscultation: clear to auscultation bilaterally, no rales, no rhonchi and no wheezes Cardio Rate: regular rate and not tachycardic Rhythm: regular rhythm GI Palpation: soft, not firm, no guarding, no masses, not rigid and nontender Skin General skin exam: no rashes or lesions noted Neuro General: patient alert, patient awake, patient oriented x3 and tone normal Extrem General: no edema Psych Appearance: grossly normal Mental Status: mental status grossly normal Speech and Movement: speech and movement normal Course Vital Signs Vital signs: Vital Signs Temperature 36.6 C 07/02/24 06:55 Pulse 83 07/02/24 06:55 Respiratory Rate 16 07/02/24 06:55 Blood Pressure 165/99 H 07/02/24 06:55 Pulse Oximetry 97 07/02/24 06:55 Temperature 36.6 C 07/02/24 06:55 Pulse 69 07/02/24 08:18 Pulse 71 07/02/24 08:10 Respiratory Rate 12 07/02/24 08:18 Respiratory Effort Normal 07/02/24 08:18 Respiratory Depth Normal 07/02/24 08:18 Respiratory Pattern Normal 07/02/24 08:18 Blood Pressure 156/98 H 07/02/24 08:18 Blood Pressure Mean 117 07/02/24 08:18 Blood Pressure Position Sitting 07/02/24 06:55 Pulse Oximetry 98 07/02/24 08:18 Oxygen Delivery Method Room Air 07/02/24 08:18 Oxygen Flow Rate 0 07/02/24 08:18 Pain Level 0 07/02/24 08:18 Lab/Test Results Lab/Test Results: Laboratory Tests Range/Units 07/02/24 07/02/24 07:08 07:25 WBC (4.4-10.8) 10^3/uL 5.49 RBC (3.93-5.22) 10^6/uL 4.85 Hgb (11.2-15.7) g/dL 14.5 Hct (36.0-46.0) % 44.5 MCV (80-95) fL 92 MCH (27.0-33.0) pg 29.9 MCHC (32.0-36.0) % 32.6 RDW (11.7-14.6) % 14.1 Plt Count (130-400) 10^3/uL 286 MPV (8.0-11.0) fL 9.2 Immature Gran % % 0.4 Neutrophils % % 48.2 Lymphocytes % % 38.1 Monocytes % % 11.3 Eosinophils % % 1.5 Basophils % % 0.5 Nucleated RBC % (0.0-0.3) % 0.0 Absolute Neutrophils (1.2-6.7) 10^3/uL 2.65 Absolute Lymphocytes (1.2-3.4) 10^3/uL 2.09 Absolute Monocytes (0.1-0.8) 10^3/uL 0.62 Absolute Eosinophils (0.0-0.7) 10^3/uL 0.08 Absolute Basophils (0.0-0.2) 10^3/uL 0.03 Sodium (136-145) mmol/L 142 Potassium (3.5-5.1) mmol/L 3.8 Chloride (98-107) mmol/L 105 Carbon Dioxide (21.0-32.0) mmol/L 29.6 Anion Gap (3-11) mmol/L 7.4 BUN (7-18) mg/dL 18 Creatinine (0.55-1.02) mg/dL 1.1 H Est GFR (CKD-EPI 2020) (mL/min/1.73m2) 54.39 Glucose (74-106) mg/dL 94 Calcium (8.5-10.1) mg/dL 9.4 Magnesium (1.8-2.4) mg/dL 2.0 Total Bilirubin (0.2-1.0) mg/dL 0.32 AST (15-37) U/L 34 ALT (14-59) U/L 49 Alkaline Phosphatase (46-116) U/L 105 Troponin I (<or=51) ng/L < 4 Total Protein (6.4-8.2) g/dL 7.4 Albumin (3.4-5.0) g/dL 4.0 ABO/Rh B Negative Antibody Screen NEGATIVE Medical Decision Making 831 -- discharge 68-year-old female with history of thoracic aortic aneurysm, here after brief episode of chest pain and atypical sensation of fluid moving from her chest to her feet, now asymptomatic. Hypertensive on arrival with blood pressure 165/99, improved to now 156/98. Patient is saturating well in no respiratory distress. Exam benign. Concern for thoracic aortic dissection versus worsening aneurysmal dilatation and rupture. Stat CT of the chest was obtained. CT of the chest was reviewed and interpreted by radiology: see below. No change in aneurysm. No dissection. No PE. Consider other etiologies for symptoms including atypical presentation of ACS. Screening EKG was reviewed and interpreted by me: Please report, sinus rhythm 87 bpm, no STEMI. Initial labs reviewed and troponin negative. Plan for observation and trending of troponin. 1101 --repeat EKG was reviewed and interpreted by me: Please report, sinus rhythm bradycardic at 59 bpm, TX interval 213. No significant changes from prior. Delta troponin negative. Patient reassessed and continues to be asymptomatic and hemodynamically stable. Patient ambulating to the bathroom without any symptoms. Plan for discharge with close outpatient follow-up with PCP. Disposition decision was made weighing the risks and benefits of hospitalization versus outpatient treatment, the risk for further decompensation, and the patient's wishes. The patient was stable and requested discharge. Prior to discharge, my usual and customary return precautions were reviewed with the patient - this included follow-up instructions and reason to return to the emergency department if condition worsens, does not improve as expected, or other new concerns arise. Imaging Data Radiologic Study: Imaging: CT Scan Radiologist's impression: 1. There is dilatation of the ascending thoracic aorta to a diameter of 4.2 cm which is unchanged from prior CT scan of 04/30/2019. There is no evidence of aortic dissection nor pericardial effusion. 2. No evidence of abdominal aortic aneurysm nor dissection. Iliac and common femoral arteries also unremarkable. 3. No evidence of acute pulmonary emboli nor pulmonary infarct. No infiltrates nor pleural effusions. 4. Small focal benign-appearing pleural thickening in the lateral aspect of the right upper lobe exhibits benign appearance and unchanged from 2019. There are no metastatic lung nodules in this patient with history of previous left mastectomy. 5. extensive sigmoid diverticulosis without evidence of obvious acute diverticulitis. Lab Data Lab results reviewed: Yes I reviewed the patient's lab results. Labs: Laboratory Tests Range/Units 07/02/24 07/02/24 07/02/24 07:08 07:25 08:16 WBC (4.4-10.8) 10^3/uL 5.49 RBC (3.93-5.22) 10^6/uL 4.85 Hgb (11.2-15.7) g/dL 14.5 Hct (36.0-46.0) % 44.5 MCV (80-95) fL 92 MCH (27.0-33.0) pg 29.9 MCHC (32.0-36.0) % 32.6 RDW (11.7-14.6) % 14.1 Plt Count (130-400) 10^3/uL 286 MPV (8.0-11.0) fL 9.2 Immature Gran % % 0.4 Neutrophils % % 48.2 Lymphocytes % % 38.1 Monocytes % % 11.3 Eosinophils % % 1.5 Basophils % % 0.5 Nucleated RBC % (0.0-0.3) % 0.0 Absolute Neutrophils (1.2-6.7) 10^3/uL 2.65 Absolute Lymphocytes (1.2-3.4) 10^3/uL 2.09 Absolute Monocytes (0.1-0.8) 10^3/uL 0.62 Absolute Eosinophils (0.0-0.7) 10^3/uL 0.08 Absolute Basophils (0.0-0.2) 10^3/uL 0.03 Sodium (136-145) mmol/L 142 Potassium (3.5-5.1) mmol/L 3.8 Chloride (98-107) mmol/L 105 Carbon Dioxide (21.0-32.0) mmol/L 29.6 Anion Gap (3-11) mmol/L 7.4 BUN (7-18) mg/dL 18 Creatinine (0.55-1.02) mg/dL 1.1 H Est GFR (CKD-EPI 2020) (mL/min/1.73m2) 54.39 Glucose (74-106) mg/dL 94 Calcium (8.5-10.1) mg/dL 9.4 Magnesium (1.8-2.4) mg/dL 2.0 Total Bilirubin (0.2-1.0) mg/dL 0.32 AST (15-37) U/L 34 ALT (14-59) U/L 49 Alkaline Phosphatase (46-116) U/L 105 Troponin I (<or=51) ng/L < 4 4 Total Protein (6.4-8.2) g/dL 7.4 Albumin (3.4-5.0) g/dL 4.0 Urine Color Urine Clarity Urine pH Ur Specific Jackson Urine Protein Urine Ketones Urine Blood Urine Nitrite Urine Bilirubin Urine Urobilinogen Ur Leukocyte Esterase Urine Glucose ABO/Rh B Negative Antibody Screen NEGATIVE Range/Units 07/02/24 09:53 WBC (4.4-10.8) 10^3/uL RBC (3.93-5.22) 10^6/uL Hgb (11.2-15.7) g/dL Hct (36.0-46.0) % MCV (80-95) fL MCH (27.0-33.0) pg MCHC (32.0-36.0) % RDW (11.7-14.6) % Plt Count (130-400) 10^3/uL MPV (8.0-11.0) fL Immature Gran % % Neutrophils % % Lymphocytes % % Monocytes % % Eosinophils % % Basophils % % Nucleated RBC % (0.0-0.3) % Absolute Neutrophils (1.2-6.7) 10^3/uL Absolute Lymphocytes (1.2-3.4) 10^3/uL Absolute Monocytes (0.1-0.8) 10^3/uL Absolute Eosinophils (0.0-0.7) 10^3/uL Absolute Basophils (0.0-0.2) 10^3/uL Sodium (136-145) mmol/L Potassium (3.5-5.1) mmol/L Chloride (98-107) mmol/L Carbon Dioxide (21.0-32.0) mmol/L Anion Gap (3-11) mmol/L BUN (7-18) mg/dL Creatinine (0.55-1.02) mg/dL Est GFR (CKD-EPI 2020) (mL/min/1.73m2) Glucose (74-106) mg/dL Calcium (8.5-10.1) mg/dL Magnesium (1.8-2.4) mg/dL Total Bilirubin (0.2-1.0) mg/dL AST (15-37) U/L ALT (14-59) U/L Alkaline Phosphatase (46-116) U/L Troponin I (<or=51) ng/L Total Protein (6.4-8.2) g/dL Albumin (3.4-5.0) g/dL Urine Color Cancelled Urine Clarity Cancelled Urine pH Cancelled Ur Specific Jackson Cancelled Urine Protein Cancelled Urine Ketones Cancelled Urine Blood Cancelled Urine Nitrite Cancelled Urine Bilirubin Cancelled Urine Urobilinogen Cancelled Ur Leukocyte Esterase Cancelled Urine Glucose Cancelled ABO/Rh Antibody Screen Quality:[facility] Health Related Social Needs: No Data to Display PFSH All Active Problems (Updated 07/02/24 @ 08:34 by Donnie Abreu MD) Diverticulosis (Acute) Chest pain (Acute) Abdominal pain (Acute) and bloating x1 week. Not getting any worse or better. Keeping her awake at night. Having normal bowel movement... which relieves abd pn to some degree..denies nausea, vomiting, or fever. wondering about diverticulitis.. Fluid collection of pancreas (Acute) vs mass per review of 12/2022 MRI ([facility]) after [place] [place] Abnormal finding of diagnostic imaging (Acute) Pancreatic [place] (?) [place] [facility] [place] Panc[facility] fluid colltn ([facility])(CT?) --> [ ] MRI Abdominal mass (Acute) Fluid collection vs attenuating focus per MRI ([facility]), 12/2022 .. Incidental finding @ [place] [place]: hypoattenuating focus between pancreas/duodenum .. mri/mrcp, pancreatic protocol recommended Presence of left breast prosthesis (Acute) Finger deformity (Chronic) Presumed arthritis, no pain Mucoid cyst of joint (Acute) left foot, 2nd toe (with irritation from overlapping great toe) Thoracic aneurysm without mention of rupture (Chronic) Fusiform prominence per 10/2022 [place] [place]. Ascending Aortic Aneurysm (last measure 4.3cm (10/2021, [facility] [place]increasing in size ~0.1 per year). Will provide surgery at 5cm) per pt report. ID'd on CXR (for PNA)(~2018). [place] [facility] [place]. [ ] Imaging? 10/14/22 Dr Ho, Cardiac Surgery, CT showed 4.2cm - unchanged since 2019 Dehydration (Chronic) Poor hydration, trying to improve. Wondering about renal function. Elevated serum GGT level (Acute) Denies high alcohol use per chart review, 02/2022, jose SVT (supraventricular tachycardia) (Acute) Family history of benign parathyroid tumor (Acute) Late Dx in mo (90s) .. is there a genetic pre-disposition? Tachycardia (Acute) Episodic per chart review, 02/2022, jose Medical History Elevated lipase Post-mastectomy deformity of breast Family history of thyroid disease Mo (nodules). Bro (cancer?) Family history of aortic aneurysm Mo had repair surgery Postmenopausal Skin lesions, generalized Benji Keratosis, Hx NEG pathologies of excisions Oral lesion Positive D-dimer post leg pain, ~ 2018 .. DVT Neg per pt report. Pneumonia with Hx bronchitis becoming PNA (serious PNA @ 3yo).. No Hx asthma/Immune Dz. Hx of malignant neoplasm of female breast 1991- s/p mastectomy .. Left breast. No reconstruction (prosth). No Chemo, Rad. [ ] Genetic Testing? Surgical History Status post left mastectomy Breast, Mastectomy (~1991) left breast Biopsy, Soft Tissue (09/29/17) right breast Family History Mother Essential hypertension Aneurysm and dissection of heart ? asc. aorta Thyroid cancer Parathyroid dysfunction Cancer Hypertension Father , age 73 Essential hypertension Parkinson's disease Thyroid cancer Alcohol use disorder Paternal Grandfather Heart disease Maternal Grandmother Essential hypertension Paternal Grandmother Heart disease Brother H/O partial thyroidectomy uncertain if this was for cancer Cancer Maternal Aunt ALS (amyotrophic lateral sclerosis) Lung cancer Maternal Aunt Lung cancer Social History Smoking/Tobacco Use Status: Never Tobacco: How many years used: 0 Second Hand Exposure: Yes Smoking risk assessment performed?: Yes Alcohol Intake: current Alcohol Intake frequency: a few times a week Alcohol type: hard liquor Drug use: Never Substance use type: does not use Adopted: No Caregiver/Support person: No Foster care: No Household members: spouse Housing: house Number of Children: 3 number of grandchildren: 2 Communication Needs: None Education Level: college Details: Bachelor's Degree Do you need help understanding health information?: Never 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 Pets and animals: No Sexually active: Yes Do you think of yourself as: straight/heterosexual Current gender identity: female What is your relationship status?: How often do you talk on the phone with friends or family?: three or more times per week How often do you get together with friends or relatives?: three or more times per week Do you belong to any clubs or organized social groups?: yes Panel score (0-1 are the most socially isolated patients): 3 What type of physical activity do you participate in: walking Duration: 15-30 minutes/day Frequency: daily Daphney/Moravian: Latter-Day Special daphney needs: No Seatbelt use: always Helmet use: No (N/A) Drive intox or ride w/intox residential recycle driver: No Do you feel safe at home: Yes Do you feel safe in your relationship?: Yes Female Reproductive History Menstrual Menopause type: natural History History 3 Para 3 Hx # Term Pregnancies Multiple births Hx # Pregnancies Ectopic pregnancies AB induced Hx Number of Living Children AB spontaneous
[2024-07-02 08:38] LABS: Troponin I 4 ng/L (<or=51)
--- NOTE | 2024-07-02 10:15 | RT.EKG_ITS ---
APPROVED REPORT Exam: Resting ECG Reason for Exam: chest pain Patient Location: E HR:59 bpm ECG Measurements Heart Rate 59 AXIS WV 213 P 4 QRSd 81 QRS 3 QT 408 T 9 QTc 405 Conclusion Sinus bradycardia...rate< 60 Borderline prolonged WV interval...WV >212, V-rate 50- 90
== END 2024-07-02 11:21 | disposition home or self-care (01) ==
PROVIDERS: Emergency Provider Student in an Organized Health Care Education/Training Program; PCP Student in an Organized Health Care Education/Training Program
DX: R07.9 Chest pain, unspecified (principal); I71.20 Thoracic aortic aneurysm, without rupture, unspecified; K57.30 Diverticulosis of large intestine without perforation or abscess without bleeding
CPT/HCPCS: 71275; 80053; 86850; 86900; 86901; 93005; 99285; 74174; 81003; 83735; 84484; 85025; 93010; 99284; J3490

== ENCOUNTER 2024-09-23 03:15 | Outpatient (CLI) | payer MEDICARE, BC, SELFPAY ==
[2024-09-23 11:34] LABS: Lipase 57 U/L (<78)
[2024-09-23 11:47] LABS: ALT 44 U/L (14-59); AST 28 U/L (15-37); Albumin 3.8 g/dL (3.4-5.0); Alkaline Phosphatase 82 U/L (46-116); Anion Gap 7.2 mmol/L (3-11); BUN 10 mg/dL (7-18); CO2 28.8 mmol/L (21.0-32.0); CREATININE 0.9 mg/dL (0.55-1.02); Calcium 9.5 mg/dL (8.5-10.1); Calculated LDL 131 mg/dL (<100); Chloride 105 mmol/L (98-107); Cholesterol 249 mg/dL (<200); Estimated GFR 68.77 (mL/min/1.73m2); Glucose 85 mg/dL (74-106); HDL Cholesterol 103 mg/dL (40-60); Sodium 141 mmol/L (136-145); TSH (W/Ref FT4) 0.95 uIU/mL (0.36-3.74); Total Protein 6.9 g/dL (6.4-8.2); Triglyceride 75 mg/dL (<150)
== END 2024-09-23 03:16 | disposition home or self-care (01) ==
PROVIDERS: PCP Nurse Practitioner Family; Referring Provider Student in an Organized Health Care Education/Training Program; Visit Provider Student in an Organized Health Care Education/Training Program
DX: R74.8 Abnormal levels of other serum enzymes; Z13.220 Encounter for screening for lipoid disorders; E86.0 Dehydration; R03.0 Elevated blood-pressure reading, without diagnosis of hypertension; Z83.49 Family history of other endocrine, nutritional and metabolic diseases
CPT/HCPCS: 80053; 80061; 83690; 84443

== ENCOUNTER 2024-10-05 02:03 | Outpatient (CLI) | payer MEDICARE, BC, SELFPAY ==
--- NOTE | 2024-10-05 06:45 | DI.MAMMO_ITS ---
Exam(s) MG MAMMO SCREENING 60 MIN DUR EXAM: MG MAMMO SCREENING 60 MIN DUR CLINICAL HISTORY: breast cancer screening,presence lt breast prosthesis,personal h/o breast TECHNIQUE: Mammograms were interpreted according to the usual protocol including computer analysis w ith CAD system, tomosynthesis and C-view imaging. COMPARISON: 2015 through 2022 FINDINGS: Status post left mastectomy. The right breast is composed of scattered fibroglandular densities, Breast Density category B. No suspicious masses or suspicious microcalcifications are seen. No skin thickening or abnormal axillary lymph nodes are seen. There has been no significant change from prior exams. IMPRESSION: BI-RADS Category 1, Negative mammogram Yearly screening mammography is recommended. Breast Density - Category B, scattered fibroglandular densities. A negative radiographic report should not delay biopsy if a dominant or clinically suspicious mass is present. Up to ten percent of cancers are not identified on mammography. A negative report may reinforce clinical impression. Adenosis and dense breasts may obscure an underlying neoplasm. False positive reports average 6 to 10%. Patient will receive a letter notifying them of these results.
== END 2024-10-05 02:23 ==
LOC: DI 02:03
PROVIDERS: PCP Nurse Practitioner Family; Visit Provider Obstetrics & Gynecology
DX: Z12.31 Encounter for screening mammogram for malignant neoplasm of breast (principal); Z98.82 Breast implant status; R92.323 Mammographic fibroglandular density, bilateral breasts
CPT/HCPCS: 77063; 77067

== ENCOUNTER 2025-07-05 01:44 | Outpatient (CLI) | payer MEDICARE, BC, SELFPAY ==
[2025-07-05 08:38] LABS: Anion Gap 6 mmol/L (3-11); BUN 10 mg/dL (9-23); CO2 25.0 mmol/L (20.0-31.0); Calcium 9.8 mg/dL (8.3-10.6); Chloride 104 mmol/L (98-107); Cholesterol 227 mg/dL (<200); Glucose 77 mg/dL (74-106); HDL Cholesterol 95 mg/dL (>40); Potassium 4.1 mmol/L (3.5-5.1); Sodium 135 mmol/L (136-145)
== END 2025-07-05 01:45 | disposition home or self-care (01) ==
LOC: LBO 01:44
PROVIDERS: PCP Nurse Practitioner Family; Visit Provider Nurse Practitioner Family
DX: E78.00 Pure hypercholesterolemia, unspecified (principal); I10 Essential (primary) hypertension
CPT/HCPCS: 36415; 80048; 80061

== ENCOUNTER 2025-07-29 12:03 | Emergency (ER) | payer MEDICARE, BC, SELFPAY ==
[2025-07-29] VITALS (34 sets, daily range): BP systolic 100–162; BP diastolic 68–112; PULSE 65–108; RESP 8–20; TEMP 36.7; O2SAT 94–98
--- NOTE | 2025-07-29 12:15 | RT.EKG_ITS ---
APPROVED REPORT Exam: Resting ECG Reason for Exam: dizziness Patient Location: E HR:101 bpm ECG Measurements Heart Rate 101 AXIS MN 169 P 34 QRSd 76 QRS 2 QT 339 T -18 QTc 441 Conclusion Sinus tachycardia...rate> 99 Probable left atrial enlargement...P >50mS, <-0.10mV V1 Probable lateral infarct, old...Q>35mS, abnormal ST-T, V5-6 I aVL
[2025-07-29] MEDS: Metoprolol 50 MG TAB PO (13:22)
--- NOTE | 2025-07-29 13:38 | W.ED.GENAD ---
Discharge Plan Disposition Patient Disposition: Home Condition: Stable Discharge Details Clinical Impression: Tachycardia, Hypertension Primary Care Provider: Crystal Noble ED Provider: Donnie Abreu Home Meds and New Rx's Prescriptions: New metoprolol tartrate 50 mg tablet 50 mg PO BID Qty: 30 0RF Continued (DME) Breast Prosthesis Left See Rx Instructions .Route .MEDSUPPLY Qty: 1 0RF Rx Instructions: Left Breast Mastectomy: new breast prosthesis and mastectomy bras. (DME) Mastectomy Bras See Rx Instructions .Route .MEDSUPPLY Qty: 4 1RF Rx Instructions: I am in need of a prescription for a new breast prosthesis and mastectomy bras. I have to go to [facility] in [facility]. multivitamin Tablet 2 tab PO DAILY Patient Comments: UltraMega for Women over 50 Discontinued metoprolol tartrate 25 mg tablet See Rx Instructions .ROUTE .COMPLEX Qty: 180 3RF Dose Instruction: TAKE ONE TABLET BY MOUTH TWICE A DAY Rx Instructions: TAKE ONE TABLET BY MOUTH TWICE A DAY Discharge Instructions Instructions: High Blood Pressure ED Additional Instructions: Take metoprolol 50 mg twice a day. Please monitor your blood pressure and keep a log. Be sure to check in the morning and at night daily. Please follow-up with your primary care physician. Please follow-up with your associate [employer]. Return to the emergency department immediately for any worsening or new concerning symptoms. Stand Alone Forms: Portal Information Referrals: Crystal Noble APRN [Primary Care Provider, Family Practice] [facility] Mode of arrival: ambulatory. Date/Time Provider Initiated Documentation: 07/29/25 12:35. Limitations to Documentation: no limitations. Information obtained by: patient. HPI Narrative: HISTORY OF PRESENT ILLNESS This is a 69-year-old female with a history of an aortic aneurysm presenting with dizziness. The patient has been experiencing persistent dizziness for the past 2 weeks. She reports an incident last week where she had to mandrel puller while driving due to a sudden onset of dizziness. She also experienced dizziness yesterday. She reports no pain, including chest pain and back pain. She describes her current state as feeling foggy and lightheaded. She has a known history of an aortic aneurysm, measuring approximately 4.4 cm, and has been advised to maintain her blood pressure at or below 115/75. However, she reports that her blood pressure has consistently been above this target. She has been under the care of a general associate [employer] and was referred to the ER by a nurse due to concerns about her blood pressure management. Her current antihypertensive regimen includes metoprolol, which she took 3 times yesterday instead of the prescribed 2 times, with the last dose taken at 3 AM today. She has previously tried losartan, which resulted in a decrease in her pulse rate to 55, and lisinopril, which caused chest discomfort. She has a scheduled appointment with her associate [employer] on 08/25/2025. She has been referred to nephrology but has not yet secured an appointment. She has made dietary modifications, including increased consumption of nuts such as pecans, walnuts, and pistachios, and green vegetables. She has reduced her alcohol intake over the past few years. She reports that kombucha and apple cider vinegar seem to exacerbate her symptoms. She reports no recent lifestyle changes, numbness, weakness, or mobility issues. Related Data Home Medications ?Medication ?Instructions ?Recorded ?Confirmed Breast Prosthesis #1 ea 10/09/22 07/29/25 Mastectomy Bras #4 ea 10/09/22 07/29/25 multivitamin 2 tab PO DAILY 01/07/25 07/29/25 metoprolol tartrate 50 mg tablet 50 mg PO BID #30 tabs 07/29/25 Previous Rx's ?Medication ?Instructions ?Recorded Breast Prosthesis #1 ea 10/09/22 Mastectomy Bras #4 ea 10/09/22 metoprolol tartrate 50 mg tablet 50 mg PO BID #30 tabs 07/29/25 Allergies Allergy/AdvReac Type Severity Reaction Status Date / Time lisinopril AdvReac Intermediate Other (See Verified 07/29/25 12:15 Comment) losartan AdvReac Intermediate Other (See Verified 07/29/25 12:15 Comment) General Stated Complaint: Dizzy/Sync SHAUNA: 3 Review of Systems All systems reviewed & are unremarkable except as noted in HPI and below Constitutional Constitutional: Denies fever(s) Cardiovascular Cardiovascular: Reports as per HPI Exam Const General: cooperative and no acute distress HENMT Head: normocephalic and atraumatic Mouth: moist mucous membranes Eyes Conjunctivae: normal conjunctivae EOM: EOM intact bilaterally Neck Neck: trachea midline and supple Resp Auscultation: clear to auscultation bilaterally, no rales, no rhonchi and no wheezes Cardio Rate: regular rate and not tachycardic Rhythm: regular rhythm GI Palpation: soft, not firm, no guarding, no masses, not rigid and nontender Skin General skin exam: no rashes or lesions noted Neuro General: patient alert, patient awake, patient oriented x3 and tone normal Cranial Nerves: CN's II-XI intact bilaterally Cognition: normal cognition Speech: speech normal Gait: normal gait Motor: strength 5/5 throughout Sensory Exam: no sensory deficits noted Extrem General: no edema Psych Appearance: grossly normal Mental Status: mental status grossly normal Speech and Movement: speech and movement normal Course Vital Signs Vital signs: Vital Signs Temperature 36.7 C 07/29/25 12:16 Pulse 108 H 07/29/25 12:16 Respiratory Rate 16 07/29/25 12:16 Blood Pressure 134/83 07/29/25 12:16 Pulse Oximetry 94 07/29/25 12:16 Temperature 36.7 C 07/29/25 12:16 Temperature Source Oral 07/29/25 12:16 Pulse 98 H 07/29/25 13:20 Pulse 97 H 07/29/25 13:20 Respiratory Rate 14 07/29/25 13:20 Blood Pressure 145/93 H 07/29/25 13:16 Blood Pressure Mean 111 07/29/25 13:16 Blood Pressure Position Sitting 07/29/25 12:16 Pulse Oximetry 94 07/29/25 13:20 Oxygen Delivery Method Room Air 07/29/25 12:16 Oxygen Flow Rate 0 07/29/25 12:16 Pain Level 0 07/29/25 12:16 Medical Decision Making ASSESSMENT AND PLAN Initial Assessment: 69-year-old female with dizziness and elevated blood pressure. History of aortic aneurysm and previous adverse reactions to blood pressure medications. Patient is hypertensive on arrival with elevated heart rate. Differential Diagnosis: - Hypertension: Elevated BP at 162/112. Current medication metoprolol. Issues with losartan and lisinopril. - Tachycardia - Hypertensive urgency ED Course: - Will perform diagnostic labs to assess renal function - Patient on metoprolol tartrate 25mg twice daily. Plan to administer afternoon dose now at increased dosing of 50 mg. - Patient reassessed and blood pressure significantly improved to now 111/68. Heart rate improved to 66. Symptoms resolved. Feeling much better. Patient ambulating without any difficulty. Remains neurologically intact. Continues to have no chest pain. - Plan to continue at increased dose of metoprolol. I advised patient to monitor her blood pressure and keep a log. She was encouraged to follow-up with her primary care physician on Friday. She was encouraged to follow-up with cardiology as scheduled. She was encouraged to return immediately for any worsening or new concerning symptoms. Usual and customary discharge instructions were reviewed. Patient verbalized understanding of instructions. Final Assessment: Dizziness and elevated blood pressure likely related to suboptimal hypertension management. Clinical Impression: - Hypertension - Aortic aneurysm Disposition: - Follow-Up: Consult cardiology team. Blood work results. Tick panel results. - Patient has had exposure to ticks with tick bites. Tick panel sent and pending at time of discharge This document was written with the assistance of MARY Barnard. The patient consented to its use. Lab Data Lab results reviewed: Yes I reviewed the patient's lab results. Labs: Laboratory Tests Range/Units 07/29/25 07/29/25 14:46 15:08 WBC (4.4-10.8) 10^3/uL 7.11 RBC (3.93-5.22) 10^6/uL 4.57 Hgb (11.2-15.7) g/dL 13.7 Hct (36.0-46.0) % 41.4 MCV (80-95) fL 91 MCH (27.0-33.0) pg 30.0 MCHC (32.0-36.0) % 33.1 RDW (11.7-14.6) % 14.1 Plt Count (130-400) 10^3/uL 279 MPV (8.0-11.0) fL 9.4 Immature Gran % % 0.4 Neutrophils % % 77.6 Lymphocytes % % 13.9 Monocytes % % 7.3 Eosinophils % % 0.4 Basophils % % 0.4 Nucleated RBC % (0.0-0.3) % 0.0 Absolute Neutrophils (1.2-6.7) 10^3/uL 5.51 Absolute Lymphocytes (1.2-3.4) 10^3/uL 0.99 L Absolute Monocytes (0.1-0.8) 10^3/uL 0.52 Absolute Eosinophils (0.0-0.7) 10^3/uL 0.03 Absolute Basophils (0.0-0.2) 10^3/uL 0.03 Sodium (136-145) mmol/L 141 Potassium (3.5-5.1) mmol/L 4.2 Chloride (98-107) mmol/L 106 Carbon Dioxide (20.0-31.0) mmol/L 27.6 Anion Gap (3-11) mmol/L 7.4 BUN (9-23) mg/dL 13 Creatinine (0.55-1.02) mg/dL 0.69 Est GFR (CKD-EPI 2020) (mL/min/1.73m2) 83.90 Glucose (74-106) mg/dL 90 Calcium (8.3-10.6) mg/dL 10.0 Magnesium (1.6-2.6) mg/dL 2.2 Total Bilirubin (0.2-1.2) mg/dL 0.4 AST (<34) U/L 28 ALT (10-49) U/L 37 Alkaline Phosphatase (46-116) U/L 94 Total Protein (5.7-8.2) g/dL 7.0 Albumin (3.2-5.0) g/dL 4.5 TSH (0.55-4.78) uIU/mL 0.91 Urine Color (Yellow) Yellow Urine Clarity (Clear) Clear Urine pH (5-8) 6.0 Ur Specific [place] (1.005-1.025) 1.010 Urine Protein (Neg-Trace) mg/dL Negative Urine Ketones (Negative) mg/dL 15 H Urine Blood (Negative) Trace-intact H Urine Nitrite (Negative) Negative Urine Bilirubin (Negative) Negative Urine Urobilinogen (Up to 0.2) mg/dL 0.2 Ur Leukocyte Esterase (Negative) Negative Urine RBC (0-2) HPF 0-2 Urine WBC (0-5) HPF Negative Ur Epithelial Cells (Negative) HPF Rare Urine Crystals (Negative) HPF Negative Urine Bacteria (Negative) HPF Negative Urine Mucus (Negative) Negative Ur Culture Indicated? No Urine Glucose (Negative) mg/dL Negative PFSH All Active Problems (Updated 07/29/25 @ 16:07 by Donnie Abreu MD) Screening for breast cancer (Acute) Hypertension (Chronic) Preventative health care (Acute) Elevated cholesterol (Chronic) Aortic aneurysm (Chronic) 08/16/24 [facility] [place] [place] Cardio notes a 4.3cm dilated ascending aorta; increased from 4.2cm from 06/2019 imaging. Vasovagal response (Acute) Possible partial etiology for flushing/anx/tachycardia reaction .. [ ] keep open to confirm? Abdominal pain (Acute) and bloating x1 week. Not getting any worse or better. Keeping her awake at night. Having normal bowel movement... which relieves abd pn to some degree..denies nausea, vomiting, or fever. wondering about diverticulitis.. Fluid collection of pancreas (Acute) vs mass per review of 12/2022 MRI ([facility]) after 10/2022 [place] [place] Abnormal finding of diagnostic imaging (Acute) Pancreatic cyst (?) per [facility] [place] [place] (CTA?) --> Pancr fluid colltn ([facility])(CT?) --> [ ] MRI Abdominal mass (Acute) Fluid collection vs attenuating focus per MRI ([facility]), 12/2022 .. Incidental finding @ CTA ([facility] [place] [place]), 10/14/22: hypoattenuating focus between pancreas/duodenum .. mri/mrcp, pancreatic protocol recommended Presence of left breast prosthesis (Acute) Finger deformity (Chronic) Presumed arthritis, no pain Mucoid cyst of joint (Acute) left foot, 2nd toe (with irritation from overlapping great toe) Thoracic aneurysm without mention of rupture (Chronic) Fusiform prominence per 10/2022 CTA ([facility] [place] [place]).. Ascending Aortic Aneurysm (last measure 4.3cm (10/2021, [facility] [place] [place] CTA)(increasing in size ~0.1 per year). Will provide surgery at 5cm) per pt report. ID'd on CXR (for PNA)(~2018). Followed by [facility] [place] [place] Thoracic Surg. [ ] Imaging? 10/14/22 Dr Ho, Cardiac Surgery, CT showed 4.2cm - unchanged since 2019 Dehydration (Chronic) Poor hydration, trying to improve. Wondering about renal function. Elevated serum GGT level (Acute) Denies high alcohol use per chart review, 02/2022, jose SVT (supraventricular tachycardia) (Acute) Family history of benign parathyroid tumor (Acute) Late Dx in mo (90s) .. is there a genetic pre-disposition? Tachycardia (Acute) Episodic per chart review, 02/2022jose Medical History Elevated lipase Post-mastectomy deformity of breast Family history of thyroid disease Mo (nodules). Bro (cancer?) Family history of aortic aneurysm Mo had repair surgery Postmenopausal Skin lesions, generalized Benji Keratosis, Hx NEG pathologies of excisions Oral lesion Positive D-dimer post leg pain, ~ 2018 .. DVT Neg per pt report. Pneumonia with Hx bronchitis becoming PNA (serious PNA @ 3yo).. No Hx asthma/Immune Dz. Hx of malignant neoplasm of female breast 1991- s/p mastectomy .. Left breast. No reconstruction (prosth). No Chemo, Rad. [ ] Genetic Testing? Surgical History Status post left mastectomy Breast, Mastectomy (~1991) left breast Biopsy, Soft Tissue (09/29/17) right breast Family History Mother Essential hypertension Aneurysm and dissection of heart ? asc. aorta Thyroid cancer Parathyroid dysfunction Cancer Hypertension Father , age 73 Essential hypertension Parkinson's disease Thyroid cancer Alcohol use disorder Paternal Grandfather Heart disease Maternal Grandmother Essential hypertension Paternal Grandmother Heart disease Brother H/O partial thyroidectomy uncertain if this was for cancer Cancer Maternal Aunt ALS (amyotrophic lateral sclerosis) Lung cancer Maternal Aunt Lung cancer Social History Smoking/Tobacco Use Status: Never Tobacco: How many years used: 0 Second Hand Exposure: Yes Smoking risk assessment performed?: Yes Alcohol Intake: current Alcohol Intake frequency: a few times a week Alcohol type: hard liquor Drug use: Never Substance use type: does not use Adopted: No Caregiver/Support person: No Foster care: No Household members: spouse Housing: house Number of Children: 3 number of grandchildren: 2 Communication Needs: None Education Level: college Details: Bachelor's Degree Do you need help understanding health information?: Never 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 Pets and animals: No Sexually active: Yes Do you think of yourself as: straight/heterosexual Current gender identity: female What is your relationship status?: How often do you talk on the phone with friends or family?: three or more times per week How often do you get together with friends or relatives?: three or more times per week Do you belong to any clubs or organized social groups?: yes Panel score (0-1 are the most socially isolated patients): 3 What type of physical activity do you participate in: walking Duration: 15-30 minutes/day Frequency: daily Daphney/Congregational: Pentecostal Special daphney needs: No Seatbelt use: always Helmet use: No (N/A) Drive intox or ride w/intox electric train driver: No Do you feel safe at home: Yes Do you feel safe in your relationship?: Yes Female Reproductive History Menstrual Menopause type: natural History History 3 Para 3 Hx # Term Pregnancies Multiple births Hx # Pregnancies Ectopic pregnancies AB induced Hx Number of Living Children AB spontaneous
[2025-07-29 14:54] LABS: Abs Immature Grans 0.03 10^3/uL (0.0-0.06); HCT 41.4 % (36.0-46.0); HGB 13.7 g/dL (11.2-15.7); Immature Grans % 0.4 %; MCH 30.0 pg (27.0-33.0); MCHC 33.1 % (32.0-36.0); MCV 91 fL (80-95); MPV 9.4 fL (8.0-11.0); Platelet Count 279 10^3/uL (130-400); RBC 4.57 10^6/uL (3.93-5.22); RDW 14.1 % (11.7-14.6); RDW-SD 46.9 fL; WBC 7.11 10^3/uL (4.4-10.8)
[2025-07-29 15:11] LABS: Magnesium 2.2 mg/dL (1.6-2.6)
[2025-07-29 15:13] LABS: ALT 37 U/L (10-49); AST 28 U/L (<34); Albumin 4.5 g/dL (3.2-5.0); Alkaline Phosphatase 94 U/L (46-116); Anion Gap 7.4 mmol/L (3-11); BUN 13 mg/dL (9-23); Bilirubin, Total 0.4 mg/dL (0.2-1.2); CO2 27.6 mmol/L (20.0-31.0); Calcium 10.0 mg/dL (8.3-10.6); Chloride 106 mmol/L (98-107); Glucose 90 mg/dL (74-106); Potassium 4.2 mmol/L (3.5-5.1); Sodium 141 mmol/L (136-145); Total Protein 7.0 g/dL (5.7-8.2)
[2025-07-29 15:15] LABS: TSH (W/Ref FT4) 0.91 uIU/mL (0.55-4.78)
[2025-07-29 16:05] LABS: Glucose Negative (Negative)
[2025-07-29 16:10] LABS: RBC 0-2 HPF (0-2); WBC Negative HPF (0-5)
[2025-07-29 16:11] LABS: C & S Indicated? No
[2025-08-01 10:35] LABS: Lyme Ab w Rflx to Lyme Confirm Negative (Negative)
[2025-08-01 14:14] LABS: B. miyamotoi PCR Negative (Negative); Babesia divergens/MO-1 Negative (Negative); Ehrlichia muris eauclairensis Negative (Negative)
== END 2025-07-29 16:18 | disposition home or self-care (01) ==
PROVIDERS: Emergency Provider Student in an Organized Health Care Education/Training Program; PCP Nurse Practitioner Family
DX: R00.0 Tachycardia, unspecified (principal); I10 Essential (primary) hypertension; R42 Dizziness and giddiness; Z86.79 Personal history of other diseases of the circulatory system
CPT/HCPCS: 99284 ×2; 80053; 87798; 93005; 81003; 81015; 83735; 84443; 85025; 86618; 93010

== ENCOUNTER 2025-08-01 03:00 | Observation (INO) | payer MEDICARE, BC, SELFPAY ==
[2025-08-01] VITALS (93 sets, daily range): BP systolic 93–206; BP diastolic 62–131; PULSE 59–108; RESP 7–27; TEMP 36.4–36.8; O2SAT 88–100
--- NOTE | 2025-08-01 03:00 | RT.EKG_ITS ---
APPROVED REPORT Exam: Resting ECG Reason for Exam: hypertension Patient Location: E HR:66 bpm ECG Measurements Heart Rate 66 AXIS NJ 180 P 1 QRSd 89 QRS 11 QT 425 T 28 QTc 446 Conclusion Sinus rhythm...normal P axis, V-rate 60- 99
--- NOTE | 2025-08-01 03:16 | ED.GENADUL_ITS ---
Discharge Plan Disposition Patient Disposition: Home Condition: Good Discharge Details Clinical Impression: Hypertension Primary Care Provider: Crystal Noble ED Provider: Bryson Madrigal Home Meds and New Rx's Prescriptions: No Action (DME) Breast Prosthesis Left See Rx Instructions .Route .MEDSUPPLY Qty: 1 0RF Rx Instructions: Left Breast Mastectomy: new breast prosthesis and mastectomy bras. (DME) Mastectomy Bras See Rx Instructions .Route .MEDSUPPLY Qty: 4 1RF Rx Instructions: I am in need of a prescription for a new breast prosthesis and mastectomy bras. I have to go to [facility] in [facility]. multivitamin Tablet 2 tab PO DAILY Patient Comments: UltraMega for Women over 50 metoprolol tartrate 50 mg tablet 50 mg PO BID Qty: 30 0RF Discharge Instructions Instructions: High Blood Pressure ED Additional Instructions: At this time your workup has returned reassuring. There is no evidence of heart strain or electrolyte abnormality. Your blood pressure has normalized with an additional dose of labetalol, as well as some rest. As we discussed together, it is very important that you follow-up closely with your primary care provider this week to start on an additional antihypertensive. Please continue to take your home medications, avoid any salty foods, if you notice any worsening of your symptoms, or any new symptoms such as vomiting, diarrhea, fever, chills, shortness of breath, chest pain, numbness, weakness, or fainting , please return immediately to the emergency department for reevaluation. Please follow up with your primary care provider as soon as possible for reassessment and reevaluation. As always, it was a pleasure participating in your medical care today. Stand Alone Forms: Portal Information HPI General Date/Time Provider Initiated Documentation: 08/01/25 03:02 . HPI Narrative: This is a pleasant 69-year-old female with a past medical history of left-sided breast cancer with mastectomy, thoracic aortic aneurysm with most recent imaging study being on 07/02/2024 hypertension ( failed treatment with DUONG/ARB, now currently on metoprolol 50 mg) who presents today for evaluation of elevated blood pressure. Patient has noted that over the last 6 months her blood pressure has been gradually increasing. She has discussed this with her primary care provider and has an appointment with [facility] cardiology in less than a month in August. She was here recently 3 nights ago for an elevated heart rate and hypertension, and dizziness, her workup was benign and reassuring. Blood pressure normalized with her home meds, and she went home. This evening when she laid down to sleep she felt that her head was spinning. This often is a symptom that she gets when her blood pressure is high. She took her pressure and noted it to be in the 200s. She came to the ER for further assessment. She denies any fever or chills. She denies any chest pain, tearing sensation in her chest, numbness tingling weakness or dizziness. She has not missed any of her medications in the last few days. She denies any significant dietary change. No other complaints at this time. Aside for the elevated blood pressure she denies any other symptoms in general. Related Data Home Medications ?Medication ?Instructions ?Recorded ?Confirmed Breast Prosthesis #1 ea 10/09/22 08/01/25 Mastectomy Bras #4 ea 10/09/22 08/01/25 multivitamin 2 tab PO DAILY 01/07/2507/12 metoprolol tartrate 50 mg tablet 50 mg PO BID #30 tabs 07/29/25 08/01/25 Previous Rx's ?Medication ?Instructions ?Recorded Breast Prosthesis #1 ea 10/09/22 Mastectomy Bras #4 ea 10/09/22 metoprolol tartrate 50 mg tablet 50 mg PO BID #30 tabs 07/29/25 Allergies Allergy/AdvReac Type Severity Reaction Status Date / Time lisinopril AdvReac Intermediate Other (See Verified 08/01/25 03:09 Comment) losartan AdvReac Intermediate Other (See Verified 08/01/25 03:09 Comment) General Stated Complaint: GenMedical SHAUNA: 3 Exam Narrative Exam Narrative: 1.Const: Well-nourished, Well-developed, appearing stated age 2.Eyes: PERRL, no conjunctival injection, and symmetrical lids. 3.ENT: Atraumatic external nose and ears. Moist MM. Neck: Symmetric, trachea midline, No thyromegaly. 4.CVS: +S1/S2, Peripheral pulses 2+ and equal in all extremities. Brisk capillary refill in all extremities. Radial pulses +2 bilaterally 5.RESP: Unlabored respiratory effort. Clear to auscultation bilaterally. No wheezes rales or rhonchi 6.GI: Soft, Nontender/Nondistended, No hepatosplenomegaly. No guarding or rebound. 7.MSK: Normocephalic/Atraumatic, Extremities w/o deformity or ttp No cyanosis or clubbing, Normal movement of all extremities 8.Skin: Warm, Dry. No rashes or lesions. 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 Sensation grossly intact, no focal neurologic deficits. 10.Psych: (AAO) x3. Appropriate mood and affect Course Vital Signs Vital signs: Vital Signs Temperature 36.4 C L 08/01/25 03:04 Pulse 73 08/01/25 03:04 Respiratory Rate 18 08/01/25 03:04 Blood Pressure 206/118 H 08/01/25 03:04 Pulse Oximetry 97 08/01/25 03:04 Temperature 36.4 C L 08/01/25 03:04 Temperature Source Oral 08/01/25 03:04 Pulse 73 08/01/25 03:04 Respiratory Rate 18 08/01/25 03:04 Blood Pressure 206/118 H 08/01/25 03:04 Blood Pressure Position Sitting 08/01/25 03:04 Pulse Oximetry 97 08/01/25 03:04 Oxygen Delivery Method Room Air 08/01/25 03:04 Oxygen Flow Rate 0 08/01/25 03:04 Medical Decision Making This is a pleasant 69-year-old female with a past medical history of left-sided breast cancer with mastectomy, thoracic aortic aneurysm with most recent imaging study being on 07/02/2024 hypertension ( failed treatment with DUONG/ARB, now currently on metoprolol 50 mg) who presents today for evaluation of elevated blood pressure. Patient has noted that over the last 6 months her blood pressure has been gradually increasing. She has discussed this with her primary care provider and has an appointment with [facility] cardiology in less than a month in August. She was here recently 3 nights ago for an elevated heart rate and hypertension, and dizziness, her workup was benign and reassuring. Blood pressure normalized with her home meds, and she went home. This evening when she laid down to sleep she felt that her head was spinning. This often is a symptom that she gets when her blood pressure is high. She took her pressure and noted it to be in the 200s. She came to the ER for further assessment. She denies any fever or chills. She denies any chest pain, tearing sensation in her chest, numbness tingling weakness or dizziness. She has not missed any of her medications in the last few days. She denies any significant dietary change. No other complaints at this time. Aside for the elevated blood pressure she denies any other symptoms in general. Exam demonstrates a well-appearing female, intact radial pulses bilaterally, no chest pain, no abnormal lung sounds, no pitting edema. Blood pressure on arrival was in the low 200s. She took her last dose of metoprolol about 4 hours ago at 11 PM. Screening EKG shows no STEMI or signs of cardiac strain, we will reinforce this with further laboratory workup. No indication for CTA or imaging as she has no symptoms to suggest worsening dissection. She has no tearing or ripping sensation, no syncope, no pulse asymmetry. We will first give an observation period of 20 to 30 minutes to see if the blood pressure normalizes on its own, and if not we will perform mild gentle intervention. 3:26 AM After being in the ED for 10 minutes her blood pressure has come down to 183/99. Patient will be given 10 of labetalol. Pending workup. 5 AM Patient remained symptom-free, blood pressure has returned to the 120s systolic. Laboratory workup shows normal troponins x 2, normal proBNP without elevation, normal electrolytes normal CBC. Will recommend patient follow-up closely with her primary care provider this week to establish second line of antihypertensive management. Patient shows no chest pain to suggest dissection or worsening a neurysm. No complaint of syncope or headache. No other modifying factors. Patient stable for discharge. Will recommend close follow-up with PCP. I have extensively reviewed the treatment plan and discharge instructions with the patient and their family. I have addressed all patient concerns at this time. The patient and family was made aware of what symptoms to monitor for that would warrant a return to the emergency department. Discussed the plan with the patient and family, they demonstrate verbal understanding and agreement with our assessment and plan at this time. The documentation in this chart was dictated using [employer]illion dictation software. Please excuse any dictation errors. 8 AM There was a bit of a delay secondary to critical patients in the emergency department from my last assessment to when the patient was given her paperwork for discharge. Unfortunately during that time the patient had an episode where she saw speckles and stars for about 5 minutes in her right eye. This resolved on its own without any other abnormality. She also developed a very mild amount of chest tightness. When the patient was reassessed, she remained symptom-free aside for slight chest tightness, but her blood pressure is now back in the 170s. Patient is concerned with this. We will repeat the dose of labetalol for 20 mg. We will get CT imaging of the brain and neck to rule out arterial claudication. PFSH All Active Problems (Updated 08/01/25 @ 05:40 by Bryson Madrigal DO) Hypertension (Chronic) Screening for breast cancer (Acute) Hypertension (Chronic) Preventative health care (Acute) Elevated cholesterol (Chronic) Aortic aneurysm (Chronic) 08/16/24 [facility] [place] notes a 4.3cm dilated ascending aorta; increased from 4.2cm from 06/2019 imaging. Vasovagal response (Acute) Possible partial etiology for flushing/anx/tachycardia reaction .. [ ] keep open to confirm? Abdominal pain (Acute) and bloating x1 week. Not getting any worse or better. Keeping her awake at night. Having normal bowel movement... which relieves abd pn to some degree..denies nausea, vomiting, or fever. wondering about diverticulitis.. Fluid collection of pancreas (Acute) vs mass per review of 12/2022 MRI ([facility]) after 10/2022 CTA ([facility] [place] [place]) Abnormal finding of diagnostic imaging (Acute) Pancreatic cyst (?) per [facility] (CTA?) --> Pancr fluid colltn ([facility])(CT?) --> [ ] MRI Abdominal mass (Acute) Fluid collection vs attenuating focus per MRI ([facility]), 12/2022 .. Incidental finding @ CTA ([facility]), 10/14/22: hypoattenuating focus between pancreas/duodenum .. mri/mrcp, pancreatic protocol recommended Presence of left breast prosthesis (Acute) Finger deformity (Chronic) Presumed arthritis, no pain Mucoid cyst of joint (Acute) left foot, 2nd toe (with irritation from overlapping great toe) Thoracic aneurysm without mention of rupture (Chronic) Fusiform prominence per 10/2022 CTA ([facility]. Ascending Aortic Aneurysm (last measure 4.3cm (10/2021, [facility] CTA)(increasing in size ~0.1 per year). Will provide surgery at 5cm) per pt report. ID'd on CXR (for PNA)(~2017). Followed by [facility] Thoracic Surg. [ ] Imaging? 10/14/22 Dr Ho, Cardiac Surgery, CT showed 4.2cm - unchanged since 2019 Dehydration (Chronic) Poor hydration, trying to improve. Wondering about renal function. Elevated serum GGT level (Acute) Denies high alcohol use per chart review, 02/2022, ik SVT (supraventricular tachycardia) (Acute) Family history of benign parathyroid tumor (Acute) Late Dx in mo (90s) .. is there a genetic pre-disposition? Tachycardia (Acute) Episodic per chart review, 02/2022, ik Medical History Elevated lipase Post-mastectomy deformity of breast Family history of thyroid disease Mo (nodules). Bro (cancer?) Family history of aortic aneurysm Mo had repair surgery Postmenopausal Skin lesions, generalized Benji Keratosis, Hx NEG pathologies of excisions Oral lesion Positive D-dimer post leg pain, ~ 2018 .. DVT Neg per pt report. Pneumonia with Hx bronchitis becoming PNA (serious PNA @ 3yo).. No Hx asthma/Immune Dz. Hx of malignant neoplasm of female breast 1991- s/p mastectomy .. Left breast. No reconstruction (prosth). No Chemo, Rad. [ ] Genetic Testing? Surgical History Status post left mastectomy Breast, Mastectomy (~1991) left breast Biopsy, Soft Tissue (09/29/17) right breast Family History Mother Essential hypertension Aneurysm and dissection of heart ? asc. aorta Thyroid cancer Parathyroid dysfunction Cancer Hypertension Father , age 73 Essential hypertension Parkinson's disease Thyroid cancer Alcohol use disorder Paternal Grandfather Heart disease Maternal Grandmother Essential hypertension Paternal Grandmother Heart disease Brother H/O partial thyroidectomy uncertain if this was for cancer Cancer Maternal Aunt ALS (amyotrophic lateral sclerosis) Lung cancer Maternal Aunt Lung cancer Social History Smoking/Tobacco Use Status: Never Tobacco: How many years used: 0 Second Hand Exposure: Yes Smoking risk assessment performed?: Yes Alcohol Intake: current Alcohol Intake frequency: a few times a week Alcohol type: hard liquor Drug use: Never Substance use type: does not use Adopted: No Caregiver/Support person: No Foster care: No Household members: spouse Housing: house Number of Children: 3 number of grandchildren: 2 Communication Needs: None Education Level: college Details: Bachelor's Degree Do you need help understanding health information?: Never 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 Pets and animals: No Sexually active: Yes Do you think of yourself as: straight/heterosexual Current gender identity: female What is your relationship status?: How often do you talk on the phone with friends or family?: three or more times per week How often do you get together with friends or relatives?: three or more times per week Do you belong to any clubs or organized social groups?: yes Panel score (0-1 are the most socially isolated patients): 3 What type of physical activity do you participate in: walking Duration: 15-30 minutes/day Frequency: daily Daphney/Amish: Mosque Special daphney needs: No Seatbelt use: always Helmet use: No (N/A) Drive intox or ride w/intox tanker truck driver: No Do you feel safe at home: Yes Do you feel safe in your relationship?: Yes Female Reproductive History Menstrual Menopause type: natural History History 3 Para 3 Hx # Term Pregnancies Multiple births Hx # Pregnancies Ectopic pregnancies AB induced Hx Number of Living Children AB spontaneous
[2025-08-01 03:32] LABS: Abs Immature Grans 0.02 10^3/uL (0.0-0.06); HCT 41.6 % (36.0-46.0); HGB 13.8 g/dL (11.2-15.7); Immature Grans % 0.3 %; MCH 30.1 pg (27.0-33.0); MCHC 33.2 % (32.0-36.0); MCV 91 fL (80-95); MPV 9.6 fL (8.0-11.0); Platelet Count 294 10^3/uL (130-400); RBC 4.58 10^6/uL (3.93-5.22); RDW 14.1 % (11.7-14.6); RDW-SD 47.3 fL; WBC 6.29 10^3/uL (4.4-10.8)
[2025-08-01] MEDS: Labetalol 100 MG/20 ML VIAL 10 MG IVP (03:48)
[2025-08-01 03:57] LABS: ALT 44 U/L (10-49); AST 41 U/L (<34); Albumin 4.7 g/dL (3.2-5.0); Alkaline Phosphatase 99 U/L (46-116); Anion Gap 9.7 mmol/L (3-11); BUN 13 mg/dL (9-23); Bilirubin, Total 0.6 mg/dL (0.2-1.2); CO2 26.3 mmol/L (20.0-31.0); Calcium 9.7 mg/dL (8.3-10.6); Chloride 106 mmol/L (98-107); Glucose 94 mg/dL (74-106); Potassium 3.7 mmol/L (3.5-5.1); Sodium 142 mmol/L (136-145); Total Protein 7.3 g/dL (5.7-8.2)
[2025-08-01 03:59] LABS: Troponin I < 3 ng/L (<35)
[2025-08-01 05:20] LABS: Troponin I < 3 ng/L (<35)
--- NOTE | 2025-08-01 07:15 | DI.CT_ITS ---
Exam(s) CT THORAX CTA EXAM: CT THORAX CTA CLINICAL HISTORY: Chest pain, history of aneurysm. TECHNIQUE: Imaging Protocol: Axial CT angiography was performed with multi- slice acquisition and multi-planar and/or 3D reconstructions. Lung Computer Aided Detection (CAD) was utilized. CONTRAST MATERIAL: Intravenous: Omnipaque 350 contrast volume:[address] THORAX ABD/PEL CTA from 07/02/2024 FINDINGS: Tracheobronchial tree: Patent where visualized. No bronchiectasis. Pulmonary parenchyma: No consolidation or dominant measurable mass. No architectural distortion. Pulmonary Arteries: To the timing of the bolus, the pulmonary arteries are insufficiently opacified for adequate evaluation for pulmonary emboli. Mediastinum and Kary: No dominant adenopathy or fluid collection. The esophagus is unremarkable. Visualized thyroid gland: There are tiny nodules in the thyroid gland. No suspicious nodules are seen. No follow-up is recommended. Pleura: No effusion or pneumothorax. Heart: The heart is mildly enlarged. No coronary artery calcifications are seen. No pericardial effusion. Aorta: The ascending thoracic aorta measures 4.6 x 4.5 cm. No evidence of dissection. Upper abdomen: Unremarkable. Soft tissues: The patient has had a prior left mastectomy. Bones: Within normal limits for the patient's age. IMPRESSION: 1. There is no evidence of a thoracic aortic dissection. 2. The ascending thoracic aorta measures 4.6 x 4.5 cm. Previously, it measured 4.2 cm. 3. There is no pulmonary infiltrate. RADIATION DOSE DELIVERED: 62.96mGy.cm Total DLP 62.96mGy.cm Total DLP DATA REPOSITORY: All CT scans at this facility are submitted to the National Radiology Data Registry (NRDR) Dose Index Registry (DIR) with the [employer] (ACR). RADIATION OPTIMIZATION: All CT scans at this facility use at least one of these dose optimization techniques: automated exposure control; mA and/or kV adjustment per patient size (includes targeted exams where dose is matched to clinical indication); or iterative reconstruction.
--- NOTE | 2025-08-01 07:15 | DI.CT_ITS ---
Exam(s) CT BRAIN NECK CTA EXAM: CT BRAIN NECK CTA CLINICAL HISTORY: Hypertensive urgency, visual disturbances and R ey. TECHNIQUE: Imaging Protocol: Axial CT angiography was performed with multi- slice acquisition and multi-planar and/or 3D reconstructions. CONTRAST MATERIAL: Intravenous: Omnipaque 350 contrast volume:70 mL COMPARISON: No exams were available for comparison FINDINGS: CT Head W/O and W: Ventricles and Extra axial spaces: Normal in size and morphology for the patient's age. Hemorrhage: None. Cerebral parenchyma: There are subtle areas of decreased attenuation in the white matter most consistent with chronic microvascular ischemic disease. There is no evidence of an acute territorial infarct or mass effect. Midline shift: None. Brainstem/Cerebellum: Normal. Calvarium: Normal. Visualized Paranasal sinuses/Mastoids: Clear. Soft Tissues: Unremarkable. Enhancement: Unremarkable. CTA Neck W: Common Carotid: Right: No dissection, occlusion or significant stenosis. Left: No dissection, occlusion or significant stenosis. External Carotid: Right: No occlusion or significant stenosis. Left: No occlusion or significant stenosis. Internal Carotid: Right: No dissection, occlusion or significant stenosis. Left: No dissection, occlusion or significant stenosis. Vertebral Artery: Right: No dissection, occlusion or significant stenosis. Left: No dissection, occlusion or significant stenosis. Lung Apices: Normal. Bones: Within normal limits for the patient's age. Soft Tissues: Normal. Thyroid gland: There are small (less than 5 mm) thyroid nodules. No suspicious nodules are seen. No follow-up is recommended. CTA Brain W: Internal Carotid Arteries: Normal. There is no evidence of an aneurysm, occlusion or significant stenosis. Anterior Cerebral Arteries: Right: No aneurysm, occlusion or significant stenosis. Left: No aneurysm, occlusion or significant stenosis. Middle Cerebral Arteries: Right: No aneurysm, occlusion or significant stenosis. Left: No aneurysm, occlusion or significant stenosis. Posterior Cerebral Arteries: Right: No aneurysm, occlusion or significant stenosis. Left: No aneurysm, occlusion or significant stenosis. Vertebral Arteries: Right: No aneurysm, occlusion or significant stenosis. Left: No aneurysm, occlusion or significant stenosis. Basilar Artery: No aneurysm, occlusion or significant stenosis. IMPRESSION: 1. No large vessel occlusion or significant stenosis on the CT angiography of the head. 2. No acute intracranial process. 3. No occlusion or significant stenosis on the CT angiography of the neck. RADIATION DOSE DELIVERED: 2,087.58mGy.cm Total DLP DATA REPOSITORY: All CT scans at this facility are submitted to the National Radiology Data Registry (NRDR) Dose Index Registry (DIR) with the [employer] (ACR). RADIATION OPTIMIZATION: All CT scans at this facility use at least one of these dose optimization techniques: automated exposure control; mA and/or kV adjustment per patient size (includes targeted exams where dose is matched to clinical indication); or iterative reconstruction.
[2025-08-01] MEDS: Labetalol 100 MG/20 ML VIAL 20 MG IVP (07:41)
[2025-08-01] MEDS: Omnipaque 350 MG/ML 100 ML BTL IJ ×2 (08:06→08:34)
[2025-08-01] MEDS: Normal Saline - Diluent 50 ML VIAL IJ ×2 (08:07→08:35)
--- NOTE | 2025-08-01 09:22 | ED.PROG_ITS ---
Date of service: 08/01/25 Time of Service: 09:22 Medical Decision Making 945 -- CTA of the brain and neck interpreted by radiology:IMPRESSION: 1. No large vessel occlusion or significant stenosis on the CT angiography of the head. 2. No acute intracranial process. 3. No occlusion or significant stenosis on the CT angiography of the neck. CTA of the thorax interpreted by radiology: 1. There is no evidence of a thoracic aortic dissection. 2. The ascending thoracic aorta measures 4.6 x 4.5 cm. Previously, it measured 4.2 cm. 3. There is no pulmonary infiltrate. Aneurysm has grown 0.4cm since 07/02/2024. Patient has BSA of 1.54. Aortic diameter/BSA = 2.98. Plan to consult with cardiothoracic sx at [facility]. 1100 --I spoke with Dr. Kurtz, thoracic surgeon at [facility] [place], he reviewed images and notes aneurysm has not grown since prior 2018. He feels no surgical intervention warranted at this time. He recommends blood pressure control. He work recommends additional workup to assess labile blood pressure and consider pheochromocytoma. -- I spoke with hospitalist, discussed ED presentation and course. They will admit the patient for hypertensive urgency. Lab Data Lab results reviewed: Yes I reviewed the patient's lab results. Labs: Laboratory Tests Range/Units 08/01/25 08/01/25 08/01/25 03:25 04:30 06:13 WBC (4.4-10.8) 10^3/uL 6.29 RBC (3.93-5.22) 10^6/uL 4.58 Hgb (11.2-15.7) g/dL 13.8 Hct (36.0-46.0) % 41.6 MCV (80-95) fL 91 MCH (27.0-33.0) pg 30.1 MCHC (32.0-36.0) % 33.2 RDW (11.7-14.6) % 14.1 Plt Count (130-400) 10^3/uL 294 MPV (8.0-11.0) fL 9.6 Immature Gran % % 0.3 Neutrophils % % 60.9 Lymphocytes % % 28.1 Monocytes % % 9.2 Eosinophils % % 1.0 Basophils % % 0.5 Nucleated RBC % (0.0-0.3) % 0.0 Absolute Neutrophils (1.2-6.7) 10^3/uL 3.83 Absolute Lymphocytes (1.2-3.4) 10^3/uL 1.77 Absolute Monocytes (0.1-0.8) 10^3/uL 0.58 Absolute Eosinophils (0.0-0.7) 10^3/uL 0.06 Absolute Basophils (0.0-0.2) 10^3/uL 0.03 Sodium (136-145) mmol/L 142 Potassium (3.5-5.1) mmol/L 3.7 Chloride (98-107) mmol/L 106 Carbon Dioxide (20.0-31.0) mmol/L 26.3 Anion Gap (3-11) mmol/L 9.7 BUN (9-23) mg/dL 13 Creatinine (0.55-1.02) mg/dL 0.67 Est GFR (CKD-EPI 2020) (mL/min/1.73m2) 86.80 Glucose (74-106) mg/dL 94 Calcium (8.3-10.6) mg/dL 9.7 Total Bilirubin (0.2-1.2) mg/dL 0.6 AST (<34) U/L 41 H ALT (10-49) U/L 44 Alkaline Phosphatase (46-116) U/L 99 Troponin I (<35) ng/L < 3 < 3 Cancelled NT-Pro-B Natriuret Pep (<300) pg/mL 90 Total Protein (5.7-8.2) g/dL 7.3 Albumin (3.2-5.0) g/dL 4.7 Discharge Plan Disposition Patient Disposition: Admit to [facility] Condition: Serious Discharge Details Clinical Impression: Hypertensive urgency, Visual disturbance, Chest discomfort Admit Date/Time: 08/01/25 11:47 Admit Provider: Mendoza Le Attending Provider: Mendoza Le Primary Care Provider: Crystal Noble ED Provider: Donnie Abreu Discharge Data Discharge Date/Time-TO BE ENTERED AT DEPARTURE: 08/01/25 05:40
--- NOTE | 2025-08-01 11:48 | HPE_ITS ---
Date of service: 08/01/25 Time of Service: 11:48 Assessment and Plan Assessment and plan (1) Hypertensive urgency: Status: Acute Assessment and plan: Labetalol in ED goal is not dropping by over 25% of max SBP - in one hour On metoprolol and previous home dose resumed Norvasc low dose added at HS - 24 h urine metanephrines Labs in AM (2) Chest discomfort: Status: Acute Assessment and plan: Transient in the setting of above - not chest pain but tightness (3) Visual disturbance: Status: Acute Assessment and plan: In the setting of point one- resolved (4) Hypertension: Status: Chronic Assessment and plan: Cannot tolerate ACEI and ARBs On metoprolol previous home dose - selective BB's Amlodipine added and titrating (5) Aortic aneurysm: Status: Chronic (6) SVT (supraventricular tachycardia): Status: Acute Assessment and plan: On home BB regimen - cannot totally d/c - adding CCB Discharge Planning Discharge Plannin-48 hours History of Present Illness History of Present Illness Chief Complaint: elevated BP Narrative: This 69 female patient with a PMHx of HTN, AAA followed by [facility] [place] [place], recently seen in the Ed for hypertension and discharge on an increased dose of metoprolol presented today to the ED for elevated BP 206/118 w/o tachycardia on arrival. She was initially treated with labetolol IV with rreduction but developed headache, vision changes and chest pain. Head and neck, CTA were neagtive. Chest CTA showed a AA measuring 4.6 cm with suspicion for size increment. S/P consultation with [facility] CTS , the ED provider, Dr Abreu was reassured that the AAA was stable. The patient symptoms resolved with additional labetalol with BP down to 134/86. The ED provider is seeking admission to the medical surgical floor for further observation and pheochromocytoma work-up. Blood work was negative for actionable findings, troponin negative X2 and EKG showed no sighss of coronary occlusion. Full code status confirmed. The patient reports flashes of light in her vision field with increased BP, chest tightness all transient and resolving with lowered BP. The patient denied dizziness, headache, nausea, vomiting , diarrhea or dysuria. Review of Systems All systems reviewed & are unremarkable except as noted in HPI and below PFSH All Active Problems (Updated 08/01/25 @ 09:38 by Donnie Abreu MD) Chest discomfort (Acute) Visual disturbance (Acute) Hypertensive urgency (Acute) Screening for breast cancer (Acute) Hypertension (Chronic) Preventative health care (Acute) Elevated cholesterol (Chronic) Aortic aneurysm (Chronic) 08/16/24 [facility] Cardio notes a 4.3cm dilated ascending aorta; increased from 4.2cm from 06/2019 imaging. Vasovagal response (Acute) Possible partial etiology for flushing/anx/tachycardia reaction .. [ ] keep open to confirm? Abdominal pain (Acute) and bloating x1 week. Not getting any worse or better. Keeping her awake at night. Having normal bowel movement... which relieves abd pn to some degree..denies nausea, vomiting, or fever. wondering about diverticulitis.. Fluid collection of pancreas (Acute) vs mass per review of 12/2022 MRI ([facility]) after 10/2022 [place] [place] Abnormal finding of diagnostic imaging (Acute) Pancreatic cyst (?) per [facility] (CTA?) --> Pancr fluid colltn ([facility])(CT?) --> [ ] MRI Abdominal mass (Acute) Fluid collection vs attenuating focus per MRI ([facility]), 12/2022 .. Incidental finding @ CTA ([facility]), 10/14/22: hypoattenuating focus between pancreas/duodenum .. mri/mrcp, pancreatic protocol recommended Presence of left breast prosthesis (Acute) Finger deformity (Chronic) Presumed arthritis, no pain Mucoid cyst of joint (Acute) left foot, 2nd toe (with irritation from overlapping great toe) Thoracic aneurysm without mention of rupture (Chronic) Fusiform prominence per 10/2022 CTA ([facility]).. Ascending Aortic Aneurysm (last measure 4.3cm (10/2021, [facility] CTA)(increasing in size ~0.1 per year). Will provide surgery at 5cm) per pt report. ID'd on CXR (for PNA)(~2017). Followed by [facility] Thoracic Surg. [ ] Imaging? 10/14/22 Dr Ho, Cardiac Surgery, CT showed 4.2cm - unchanged since 2019 Dehydration (Chronic) Poor hydration, trying to improve. Wondering about renal function. Elevated serum GGT level (Acute) Denies high alcohol use per chart review, 02/2022, ik SVT (supraventricular tachycardia) (Acute) Family history of benign parathyroid tumor (Acute) Late Dx in mo (90s) .. is there a genetic pre-disposition? Tachycardia (Acute) Episodic per chart review, 02/2022, jose Medical History Elevated lipase Post-mastectomy deformity of breast Family history of thyroid disease Mo (nodules). Bro (cancer?) Family history of aortic aneurysm Mo had repair surgery Postmenopausal Skin lesions, generalized Benji Keratosis, Hx NEG pathologies of excisions Oral lesion Positive D-dimer post leg pain, ~ 2018 .. DVT Neg per pt report. Pneumonia with Hx bronchitis becoming PNA (serious PNA @ 3yo).. No Hx asthma/Immune Dz. Hx of malignant neoplasm of female breast 1991- s/p mastectomy .. Left breast. No reconstruction (prosth). No Chemo, Rad. [ ] Genetic Testing? Surgical History Status post left mastectomy Breast, Mastectomy (~1991) left breast Biopsy, Soft Tissue (09/29/17) right breast Family History Mother Essential hypertension Aneurysm and dissection of heart ? asc. aorta Thyroid cancer Parathyroid dysfunction Cancer Hypertension Father , age 73 Essential hypertension Parkinson's disease Thyroid cancer Alcohol use disorder Paternal Grandfather Heart disease Maternal Grandmother Essential hypertension Paternal Grandmother Heart disease Brother H/O partial thyroidectomy uncertain if this was for cancer Cancer Maternal Aunt ALS (amyotrophic lateral sclerosis) Lung cancer Maternal Aunt Lung cancer Social History Smoking/Tobacco Use Status: Never Tobacco: How many years used: 0 Second Hand Exposure: Yes Smoking risk assessment performed?: Yes Alcohol Intake: current Alcohol Intake frequency: a few times a week Alcohol type: hard liquor Drug use: Never Substance use type: does not use Adopted: No Caregiver/Support person: No Foster care: No Household members: spouse Housing: house Number of Children: 3 number of grandchildren: 2 Communication Needs: None Education Level: college Details: Bachelor's Degree Do you need help understanding health information?: Never 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 Pets and animals: No Sexually active: Yes Do you think of yourself as: straight/heterosexual Current gender identity: female What is your relationship status?: How often do you talk on the phone with friends or family?: three or more times per week How often do you get together with friends or relatives?: three or more times per week Do you belong to any clubs or organized social groups?: yes Panel score (0-1 are the most socially isolated patients): 3 What type of physical activity do you participate in: walking Duration: 15-30 minutes/day Frequency: daily Daphney/Anabaptism: Zoroastrianism Special daphney needs: No Seatbelt use: always Helmet use: No (N/A) Drive intox or ride w/intox cdl truck driver: No Do you feel safe at home: Yes Do you feel safe in your relationship?: Yes Female Reproductive History Menstrual Menopause type: natural History History 2 3 Para 3 Hx # Term Pregnancies Multiple births Hx # Pregnancies Ectopic pregnancies AB induced Hx Number of Living Children AB spontaneous Meds Allergies and Home Medications Allergies Allergy/AdvReac Type Severity Reaction Status Date / Time lisinopril AdvReac Intermediate Other (See Verified 08/01/25 03:09 Comment) losartan AdvReac Intermediate Other (See Verified 08/01/25 03:09 Comment) Home Medications ?Medication ?Instructions ?Recorded ?Confirmed ?Type Breast Prosthesis #1 ea 10/09/22 08/01/25 Rx Mastectomy Bras #4 ea 10/09/22 08/01/25 Rx multivitamin 2 tab PO DAILY 01/07/2507/12 History metoprolol tartrate 50 mg tablet 50 mg PO BID #30 tabs 07/29/25 08/01/25 Rx Exam Narrative Exam Narrative: Alert and oriented X4, no neurological deficit, unlabored breathing and clear l S1 S2 regular , no murmur , abdomen is non-acute - no rash or lesion on exposed skin Results Labs 08/01/25 03:25 08/01/25 03:25 Labs: Laboratory Results - last 24 hr 08/01/25 08/01/25 08/01/25 03:25 04:30 06:13 WBC 6.29 RBC 4.58 Hgb 13.8 Hct 41.6 MCV 91 MCH 30.1 MCHC 33.2 RDW 14.1 Plt Count 294 MPV 9.6 Immature Gran % 0.3 Neutrophils % 60.9 Lymphocytes % 28.1 Monocytes % 9.2 Eosinophils % 1.0 Basophils % 0.5 Nucleated RBC % 0.0 Absolute Neutrophils 3.83 Absolute Lymphocytes 1.77 Absolute Monocytes 0.58 Absolute Eosinophils 0.06 Absolute Basophils 0.03 Sodium 142 Potassium 3.7 Chloride 106 Carbon Dioxide 26.3 Anion Gap 9.7 BUN 13 Creatinine 0.67 Est GFR (CKD-EPI 2020) 86.80 Glucose 94 Calcium 9.7 Total Bilirubin 0.6 AST 41 H ALT 44 Alkaline Phosphatase 99 Troponin I < 3 < 3 Cancelled NT-Pro-B Natriuret Pep 90 Total Protein 7.3 Albumin 4.7 Last Vital Signs Temp 36.4 C L 08/01/25 03:04 Pulse 75 08/01/25 11:01 Resp 15 08/01/25 11:01 BP 134/84 08/01/25 10:46 Pulse Ox 96 08/01/25 11:01 VTE Prohylaxis Risk Level: Moderate/High Risk Contraindications: None Prophylaxis: Pharmacologic Time Spent Time spent with Patient: >75 minutes Time was spent: preparing to see the patient(eg.review tests), obtaining and/or reviewing separately otained hiistory, ordering medications,tests, procedures, referring, communicating with other health patient care provider, indepentently interpreting results, counseling the patient, care coordination and other
[2025-08-01 11:59] LABS: Troponin I 3 ng/L (<35)
--- NOTE | 2025-08-01 14:50 | W.PC.ACHO ---
Registration Status: REG ER Primary Language: Preferred Language: Frisian ED Information & Data Chief Complaint GenMedical 08/01/25 03:26 Triage Note was here shawna for the same 08/01/25 03:04 thing, has an aortic aneurism and blood pressure is high Medical / Surgical History (Last Reviewed 06/22/25 @ 17:40 by Crystal Noble, RUFUS) Elevated lipase Post-mastectomy deformity of breast Family history of thyroid disease Family history of aortic aneurysm Postmenopausal Skin lesions, generalized Oral lesion Positive D-dimer Pneumonia Hx of malignant neoplasm of female breast (Last Reviewed 06/22/25 @ 17:40 by Crystal Noble, RUFUS) Status post left mastectomy Breast, Mastectomy (~1991) Biopsy, Soft Tissue (09/29/17) Most Recent Vital Signs Temperature 36.4 C L 08/01/25 03:04 Temperature Source Oral 08/01/25 03:04 Pulse 96 H 08/01/25 13:20 Pulse 96 H 08/01/25 13:20 Respiratory Rate 14 08/01/25 13:20 Respiratory Effort Normal, Non-Labored 08/01/25 08:11 Respiratory Depth Normal 08/01/25 08:11 Respiratory Pattern Normal 08/01/25 08:11 Blood Pressure 93/69 L 08/01/25 13:15 Blood Pressure Mean 76 08/01/25 13:15 Blood Pressure Position Sitting 08/01/25 03:04 Pulse Oximetry 97 08/01/25 13:20 Oxygen Delivery Method Room Air 08/01/25 03:04 Oxygen Flow Rate 0 08/01/25 03:04 Allergies lisinopril Adverse Reaction (Intermediate, Verified 08/01/25 03:09) Other (See Comment) chest heaviness losartan Adverse Reaction (Intermediate, Verified 08/01/25 03:09) Other (See Comment) elevated BP and bradycardia Precautions Isolation Standard precaution 08/01/25 03:10 Active Medications Generic Name Dose Route Start Last Admin Trade Name Freq PRN Reason Stop Dose Admin Iohexol 100 ml 08/01/25 08:15 08/01/25 08:06 Omnipaque 350 Mg/Ml 100 Ml Btl IJ 08/31/25 23:59 70 ml DIRECTED SHANI Administration Iohexol 100 ml 08/01/25 08:45 08/01/25 08:34 Omnipaque 350 Mg/Ml 100 Ml Btl IJ 08/31/25 23:59 60 ml DIRECTED SHANI Administration Labetalol HCl 20 mg 08/01/25 07:30 08/01/25 07:41 Labetalol 100 Mg/20 Ml Vial IVP 20 mg NOW SHANI Administration Sodium Chloride 50 ml 08/01/25 08:15 08/01/25 08:07 Normal Saline - Diluent 50 Ml Vial IJ 50 ml DIRECTED SHANI Administration Sodium Chloride 50 ml 08/01/25 08:45 08/01/25 08:35 Normal Saline - Diluent 50 Ml Vial IJ 50 ml DIRECTED SHANI Administration IV IV Catheter Type [Right Diffusics Forearm] IV Catheter Gauge [Right 20 Forearm] Diagnostics 08/01/25 08/01/25 08/01/25 Range/Units 11:30 11:15 06:13 WBC (4.4-10.8) 10^3/uL RBC (3.93-5.22) 10^6/uL Hgb (11.2-15.7) g/dL Hct (36.0-46.0) % MCV (80-95) fL MCH (27.0-33.0) pg MCHC (32.0-36.0) % RDW (11.7-14.6) % Plt Count (130-400) 10^3/uL MPV (8.0-11.0) fL Immature Gran % % Neutrophils % % Lymphocytes % % Monocytes % % Eosinophils % % Basophils % % Nucleated RBC % (0.0-0.3) % Absolute Neutrophils (1.2-6.7) 10^3/uL Absolute Lymphocytes (1.2-3.4) 10^3/uL Absolute Monocytes (0.1-0.8) 10^3/uL Absolute Eosinophils (0.0-0.7) 10^3/uL Absolute Basophils (0.0-0.2) 10^3/uL Sodium (136-145) mmol/L Potassium (3.5-5.1) mmol/L Chloride (98-107) mmol/L Carbon Dioxide (20.0-31.0) mmol/L Anion Gap (3-11) mmol/L BUN (9-23) mg/dL Creatinine (0.55-1.02) mg/dL Est GFR (CKD-EPI 2020) (mL/min/1.73m2) Glucose (74-106) mg/dL Calcium (8.3-10.6) mg/dL Total Bilirubin (0.2-1.2) mg/dL AST (<34) U/L ALT (10-49) U/L Alkaline Phosphatase (46-116) U/L Troponin I 3 Pending Cancelled (<35) ng/L NT-Pro-B Natriuret Pep (<300) pg/mL Total Protein (5.7-8.2) g/dL Albumin (3.2-5.0) g/dL 08/01/25 08/01/25 Range/Units 04:30 03:25 WBC 6.29 (4.4-10.8) 10^3/uL RBC 4.58 (3.93-5.22) 10^6/uL Hgb 13.8 (11.2-15.7) g/dL Hct 41.6 (36.0-46.0) % MCV 91 (80-95) fL MCH 30.1 (27.0-33.0) pg MCHC 33.2 (32.0-36.0) % RDW 14.1 (11.7-14.6) % Plt Count 294 (130-400) 10^3/uL MPV 9.6 (8.0-11.0) fL Immature Gran % 0.3 % Neutrophils % 60.9 % Lymphocytes % 28.1 % Monocytes % 9.2 % Eosinophils % 1.0 % Basophils % 0.5 % Nucleated RBC % 0.0 (0.0-0.3) % Absolute Neutrophils 3.83 (1.2-6.7) 10^3/uL Absolute Lymphocytes 1.77 (1.2-3.4) 10^3/uL Absolute Monocytes 0.58 (0.1-0.8) 10^3/uL Absolute Eosinophils 0.06 (0.0-0.7) 10^3/uL Absolute Basophils 0.03 (0.0-0.2) 10^3/uL Sodium 142 (136-145) mmol/L Potassium 3.7 (3.5-5.1) mmol/L Chloride 106 (98-107) mmol/L Carbon Dioxide 26.3 (20.0-31.0) mmol/L Anion Gap 9.7 (3-11) mmol/L BUN 13 (9-23) mg/dL Creatinine 0.67 (0.55-1.02) mg/dL Est GFR (CKD-EPI 2020) 86.80 (mL/min/1.73m2) Glucose 94 (74-106) mg/dL Calcium 9.7 (8.3-10.6) mg/dL Total Bilirubin 0.6 (0.2-1.2) mg/dL AST 41 H (<34) U/L ALT 44 (10-49) U/L Alkaline Phosphatase 99 (46-116) U/L Troponin I < 3 < 3 (<35) ng/L NT-Pro-B Natriuret Pep 90 (<300) pg/mL Total Protein 7.3 (5.7-8.2) g/dL Albumin 4.7 (3.2-5.0) g/dL Intake and Output - 24 Hour Total 08/01/25 03:00 thru 08/01/25 03:04 Weight 54.885 kg Falls Risk Assessment History of Falls No History 08/01/25 03:11 Contributing Factors No Factors 08/01/25 03:11 Ambulatory Aids Independent 08/01/25 03:11 Tubes/Lines None 08/01/25 03:11 Gait Evaluation No gait disturbance 08/01/25 03:11 Cognition No cognitive impairment 08/01/25 03:11 Fall Total Score 0 08/01/25 03:11 Level of Risk Standard/Low Risk 08/01/25 03:11 Attestation Statement: By documenting the first initial, last name, and credentials of the reporting nurse below, both parties acknowledge that all relevant information regarding the patient handoff has been communicated, and that all questions have been addressed to ensure continuity and safety of care. Additional Patient Information/Comments: Report Received From: [facility] at [id number]
--- NOTE | 2025-08-01 15:05 | PHA.REVIEW2 ---
Pharmacy Admission Review Admission Clinical Review Admission Pharmacy Review: lisinopril Adverse Reaction (Intermediate, Verified 08/01/25 03:09) Other (See Comment) losartan Adverse Reaction (Intermediate, Verified 08/01/25 03:09) Other (See Comment) Resuscitation Status Full Code Height 5 ft 2 in Weight 54.885 kg Pharmacy Admission Review Renal Dosing Renal Dosing: BUN 13 mg/dL (9-23) 08/01/25 03:25 Creatinine 0.67 mg/dL (0.55-1.02) 08/01/25 03:25 Medications needing adjustments: Reviewed (CrCl 45.36 mL/min) List of meds needing interventions: Current medications are okay Anticoagulation Anticoagulation: Hgb 13.8 g/dL (11.2-15.7) 08/01/25 03:25 Hct 41.6 % (36.0-46.0) 08/01/25 03:25 Plt Count 294 10^3/uL (130-400) 08/01/25 03:25 Creatinine 0.67 mg/dL (0.55-1.02) 08/01/25 03:25 DVT Prophylaxis: Reviewed Medications: Enoxaparin (40mg daily) Relevant Labs Relevant Labs: Sodium 142 mmol/L (136-145) 08/01/25 03:25 Potassium 3.7 mmol/L (3.5-5.1) 08/01/25 03:25 Chloride 106 mmol/L (98-107) 08/01/25 03:25 Electrolytes, C-Reactive P, ESR: Reviewed Cardiac Review Cardiac Review: Troponin I 3 ng/L (<35) 08/01/25 11:30 NT-Pro-B Natriuret Pep 90 pg/mL (<300) 08/01/25 03:25 Blood Pressure 105/85 1503 Blood Pressure 93/69 1315 Blood Pressure 102/81 1300 Blood Pressure 111/72 1245 Blood Pressure 117/81 1234 Blood Pressure 142/85 1115 Blood Pressure 134/84 1046 Blood Pressure 131/82 1031 Blood Pressure 133/78 1015 Blood Pressure 145/90 1000 Blood Pressure 126/75 0800 Blood Pressure 122/62 0748 Blood Pressure 144/85 0746 Blood Pressure 153/84 0744 Blood Pressure 141/87 0720 Blood Pressure 170/92 0700 Blood Pressure 206/118 0304 BP, HR, EF%: Reviewed (HR 98) List meds needing interventions: Has order for metoprolol 50mg BID QTc Review QTc: Reviewed (441 from 07/29/25) IV to PO Switch IV Medications: Reviewed Home Meds Home Med List reviewed: Reviewed Current Meds Current Medication Order Review: Reviewed
[2025-08-01 15:20] LABS: Troponin I 4 ng/L (<35)
[2025-08-01] MEDS: Metoprolol 50 MG TAB 25 MG PO (21:17)
[2025-08-01] MEDS: amLODIPine 5 MG TAB PO (21:17)
[2025-08-01] MEDS: Normal Saline Flush 10 ML SYR IVP (21:18)
[2025-08-02] VITALS (9 sets, daily range): BP systolic 91–138; BP diastolic 63–103; PULSE 68–105; RESP 15–19; TEMP 36.6–36.8; O2SAT 94–100
[2025-08-02 06:55] LABS: Magnesium 2.0 mg/dL (1.6-2.6)
[2025-08-02 06:56] LABS: ALT 32 U/L (10-49); AST 26 U/L (<34); Albumin 4.1 g/dL (3.2-5.0); Alkaline Phosphatase 82 U/L (46-116); Anion Gap 8.9 mmol/L (3-11); BUN 10 mg/dL (9-23); Bilirubin, Total 0.6 mg/dL (0.2-1.2); CO2 29.1 mmol/L (20.0-31.0); Calcium 9.9 mg/dL (8.3-10.6); Chloride 108 mmol/L (98-107); Glucose 91 mg/dL (74-106); Potassium 3.9 mmol/L (3.5-5.1); Sodium 146 mmol/L (136-145); Total Protein 6.4 g/dL (5.7-8.2)
[2025-08-02 07:02] LABS: Abs Immature Grans 0.01 10^3/uL (0.0-0.06); HCT 39.5 % (36.0-46.0); HGB 13.1 g/dL (11.2-15.7); Immature Grans % 0.2 %; MCH 30.5 pg (27.0-33.0); MCHC 33.2 % (32.0-36.0); MCV 92 fL (80-95); MPV 9.8 fL (8.0-11.0); Platelet Count 249 10^3/uL (130-400); RBC 4.30 10^6/uL (3.93-5.22); RDW 14.5 % (11.7-14.6); RDW-SD 48.5 fL; WBC 5.16 10^3/uL (4.4-10.8)
--- NOTE | 2025-08-02 07:51 | PDOC.CMIN ---
Date of service: 08/02/25 Time of Service: 10:01 Care Management Initial Assmt Initial Assessment Reason for Hospitalization: Hypertensive urgency/emergency Functional Status/Living Situation Patient Presentation: Gerda was sitting up in bed and awake when CM met with them. She presented to the ED for evaluation of elevated blood pressure. Per report, Gerda was admitted for for further observation and pheochromocytoma work-up, as recommonded in the ED, by [facility] thoracic surgeon. Gerda has had many recent ED visits this month. Town of Residence: [place] Medications Medication Management: No Issues/Barriers identified Advance Directives Advance Directives: Do you have an Advance Directive: N 04/11/18, 13:28 AD On File at [facility]: N 04/11/18, 13:28 Date Asked 08/01/25 Today, 08:01 AD Date Reviewed COLST On File at [facility] COLST Date Scanned Code Status Resuscitation Status Full Code Insurance Coverage/Financial Issues Insurance: Medicare Part A & B - [id number] /[facility] - [id number] Care Team Visit Care Team Role Provider Type Crystal Noble APRN Primary Care Provider NURSE PRACTITIONER Donnie Abreu MD Emergency Provider [facility] STAFF PHYSICIAN Mendoza Le Admit Provider [facility] STAFF PHYSICIAN Attending Provider Discharge Potential Discharge Needs: PCP F/U Appt Anticipated Barriers to Discharge: Medical Status Patient/Family Education Needs: Review discharge instructions, discuss Ask Me Three Transportation: Private vehicle Plan: Anticipate Gerda will be discharged home once medically ready. It is recommended she follow up with her community providers, and discharge plan of care. She will transport via private vehicle. CM will follow. Social Determinants of Health Screening Social Determinants of health last assessed in clinic: 08/02/25 Will the Patient Participate in the Screening?: Unable to obtain Do you worry about having a steady place to live?: no Problems where you live: no known problems In the past 12 months, have you had to go without electric, gas, oil or water in your home?: no 1. Within the past 12 months, we worried whether our food would run out before we got money to buy more.: Never true 2. Within the past 12 months, the food we bought just didn't last and we didn't have money to get more.: Never true Has lack of transportation kept you from medical appointments or from doing things needed for daily living?: no Has anyone in your life made you feel unsafe or unsupported?: no How hard is it for you to pay for the very basics like food, housing, medical care, and heating? Would you say it is:: Not hard at all Do you want help finding or keeping work or a job?: I do not need or want help If for any reason you need help with day-to-day activities such as bathing, preparing meals, shopping, managing finances, etc., do you get the help you need?: I don?t need any help How often do you feel lonely or isolated from those around you?: Never Do you speak a language other than Slovak at home?: No Does the patient want assistance with any of the above?: No PFSH All Active Problems (Updated 08/01/25 @ 09:38 by Donnie Abreu MD) Chest discomfort (Acute) Visual disturbance (Acute) Hypertensive urgency (Acute) Screening for breast cancer (Acute) Hypertension (Chronic) Preventative health care (Acute) Elevated cholesterol (Chronic) Aortic aneurysm (Chronic) 08/16/24 [facility] Cardio notes a 4.3cm dilated ascending aorta; increased from 4.2cm from 06/2019 imaging. Vasovagal response (Acute) Possible partial etiology for flushing/anx/tachycardia reaction .. [ ] keep open to confirm? Abdominal pain (Acute) and bloating x1 week. Not getting any worse or better. Keeping her awake at night. Having normal bowel movement... which relieves abd pn to some degree..denies nausea, vomiting, or fever. wondering about diverticulitis.. Fluid collection of pancreas (Acute) vs mass per review of 12/2022 MRI ([facility]) after 10/[address] CTA ([facility] [place]) Abnormal finding of diagnostic imaging (Acute) Pancreatic cyst (?) per [facility] (CTA?) --> Pancr fluid colltn ([facility])(CT?) --> [ ] MRI Abdominal mass (Acute) Fluid collection vs attenuating focus per MRI ([facility]), 12/2022 .. Incidental finding @ CTA ([facility]), 10/14/22: hypoattenuating focus between pancreas/duodenum .. mri/mrcp, pancreatic protocol recommended Presence of left breast prosthesis (Acute) Finger deformity (Chronic) Presumed arthritis, no pain Mucoid cyst of joint (Acute) left foot, 2nd toe (with irritation from overlapping great toe) Thoracic aneurysm without mention of rupture (Chronic) Fusiform prominence per 10/2022 CTA ([facility]).. Ascending Aortic Aneurysm (last measure 4.3cm (10/2021, [facility] CTA)(increasing in size ~0.1 per year). Will provide surgery at 5cm) per pt report. ID'd on CXR (for PNA)(~2017). Followed by [facility] Thoracic Surg. [ ] Imaging? 10/14/22 Dr Ho, Cardiac Surgery, CT showed 4.2cm - unchanged since 2019 Dehydration (Chronic) Poor hydration, trying to improve. Wondering about renal function. Elevated serum GGT level (Acute) Denies high alcohol use per chart review, 02/2022, jose SVT (supraventricular tachycardia) (Acute) Family history of benign parathyroid tumor (Acute) Late Dx in mo (90s) .. is there a genetic pre-disposition? Tachycardia (Acute) Episodic per chart review, 02/2022, jose Medical History Elevated lipase Post-mastectomy deformity of breast Family history of thyroid disease Mo (nodules). Bro (cancer?) Family history of aortic aneurysm Mo had repair surgery Postmenopausal Skin lesions, generalized Benji Keratosis, Hx NEG pathologies of excisions Oral lesion Positive D-dimer post leg pain, ~ 2017 .. DVT Neg per pt report. Pneumonia with Hx bronchitis becoming PNA (serious PNA @ 3yo).. No Hx asthma/Immune Dz. Hx of malignant neoplasm of female breast 1991- s/p mastectomy .. Left breast. No reconstruction (prosth). No Chemo, Rad. [ ] Genetic Testing? Surgical History Status post left mastectomy Breast, Mastectomy (~1991) left breast Biopsy, Soft Tissue (09/29/17) right breast Family History Mother Essential hypertension Aneurysm and dissection of heart ? asc. aorta Thyroid cancer Parathyroid dysfunction Cancer Hypertension Father , age 73 Essential hypertension Parkinson's disease Thyroid cancer Alcohol use disorder Paternal Grandfather Heart disease Maternal Grandmother Essential hypertension Paternal Grandmother Heart disease Brother H/O partial thyroidectomy uncertain if this was for cancer Cancer Maternal Aunt ALS (amyotrophic lateral sclerosis) Lung cancer Maternal Aunt Lung cancer Social History Smoking/Tobacco Use Status: Never Tobacco: How many years used: 0 Second Hand Exposure: Yes Smoking risk assessment performed?: Yes Alcohol Intake: current Alcohol Intake frequency: a few times a week Alcohol type: hard liquor Drug use: Never Substance use type: does not use Adopted: No Caregiver/Support person: No Foster care: No Household members: spouse Housing: house Number of Children: 3 number of grandchildren: 2 Communication Needs: None Education Level: college Details: Bachelor's Degree Do you need help understanding health information?: Never 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 Pets and animals: No Sexually active: Yes Do you think of yourself as: straight/heterosexual Current gender identity: female What is your relationship status?: How often do you talk on the phone with friends or family?: three or more times per week How often do you get together with friends or relatives?: three or more times per week Do you belong to any clubs or organized social groups?: yes Panel score (0-1 are the most socially isolated patients): 3 What type of physical activity do you participate in: walking Duration: 15-30 minutes/day Frequency: daily Daphney/Baptist: Holiness Special daphney needs: No Seatbelt use: always Helmet use: No (N/A) Drive intox or ride w/intox local city driver: No Do you feel safe at home: Yes Do you feel safe in your relationship?: Yes Female Reproductive History Menstrual Menopause type: natural History History 3 Para 3 Hx # Term Pregnancies Multiple births Hx # Pregnancies Ectopic pregnancies AB induced Hx Number of Living Children AB spontaneous Readmission Within the Past 30 Days Yes or No: No
[2025-08-02] MEDS: Enoxaparin 40 MG/0.4 ML SYR SC (09:07)
[2025-08-02] MEDS: Metoprolol 50 MG TAB 25 MG PO (09:07)
[2025-08-02] MEDS: Normal Saline Flush 10 ML SYR IVP (09:08)
[2025-08-02] MEDS: Multivitamin TAB 2 TAB PO (09:09)
--- NOTE | 2025-08-02 09:49 | W.PM.PROGNOT ---
Date of Service Date of service: 08/02/25 Time of Service: 09:49 Assessment and Plan Assessment and plan (1) Hypertensive urgency: Status: Acute Assessment and plan: Labetalol in ED goal is not dropping by over 25% of max SBP - in one hour - SBP down to the low 90's on the floor on the day of admission - Plan to lower home dose metoprolol to previous home dosing ( it was increased by ED provider in the first instance of presentation with elevated BP) resumed Titrate Amlodipine down to 2.5 mg- with prior 5 mg dosing BP trend continued to be lower than recommended 24 h urine metanephrines collection ongoing - it is a send out and follow-up to be done by PCP No further hypertensive episodes Labs in AM (2) Chest discomfort: Status: Acute Assessment and plan: Transient in the setting of above - not chest pain but tightness (3) Visual disturbance: Status: Acute Assessment and plan: In the setting of point one- resolved on admission - no recurrence (4) Hypertension: Status: Chronic Assessment and plan: Cannot tolerate ACEI and ARBs On metoprolol previous home dose - selective BB's Amlodipine added and titrating (5) Aortic aneurysm: Status: Chronic (6) SVT (supraventricular tachycardia): Status: Acute Assessment and plan: On home BB regimen - cannot totally d/c - adding CCB Exam Narrative Exam Narrative: Alert and oriented X4, no neurological deficit, unlabored breathing and clear l S1 S2 regular , no murmur , abdomen is non-acute - no rash or lesion on exposed skin Objective Last Vital Signs Temp 36.6 C 08/02/25 07:14 Pulse 105 H 08/02/25 09:10 Resp 16 08/02/25 07:14 BP 138/103 H 08/02/25 09:10 Pulse Ox 98 08/02/25 07:14 Laboratory Results - last 24 hr 08/01/25 08/01/25 08/02/25 11:30 14:43 05:57 WBC 5.16 RBC 4.30 Hgb 13.1 Hct 39.5 MCV 92 MCH 30.5 MCHC 33.2 RDW 14.5 Plt Count 249 MPV 9.8 Immature Gran % 0.2 Neutrophils % 58.5 Lymphocytes % 27.9 Monocytes % 10.5 Eosinophils % 2.3 Basophils % 0.6 Nucleated RBC % 0.0 Absolute Neutrophils 3.02 Absolute Lymphocytes 1.44 Absolute Monocytes 0.54 Absolute Eosinophils 0.12 Absolute Basophils 0.03 Sodium 146 H Potassium 3.9 Chloride 108 H Carbon Dioxide 29.1 Anion Gap 8.9 BUN 10 Creatinine 0.74 Est GFR (CKD-EPI 2020) 77.39 Glucose 91 Calcium 9.9 Magnesium 2.0 Total Bilirubin 0.6 AST 26 ALT 32 Alkaline Phosphatase 82 Troponin I 3 4 Total Protein 6.4 Albumin 4.1 VTE Prohylaxis Risk Level: Moderate/High Risk Contraindications: None Prophylaxis: Pharmacologic
[2025-08-02] MEDS: amLODIPine 2.5 MG TAB PO (11:54)
--- NOTE | 2025-08-02 12:10 | DSE_ITS ---
Date of service: 08/02/25 Time of Service: 14:35 DS: Diagnosis Discharge Diagnosis (1) Hypertensive urgency: Status: Acute (2) Chest discomfort: Status: Acute (3) Visual disturbance: Status: Acute (4) Hypertension: Status: Chronic (5) Aortic aneurysm: Status: Chronic (6) SVT (supraventricular tachycardia): Status: Acute Discharge Plan Disposition Patient Disposition: Home Condition: Improving Discharge Details Reason For Visit: Hypertensive Urgency / Emergency Admit Date/Time: 08/01/25 11:47 Admit Provider: Mendoza Le Attending Provider: Mendoza Le [facility] Hospital Course: This 69 female patient with a PMHx of HTN on metoprolol, AAA followed by [facility], left mastectomy, HLD, SVt X1 in 2019 recently seen in the ED for hypertension and discharge on an increased dose of metoprolol presented today to the ED for elevated BP 206/118 w/o tachycardia on arrival. She was initially treated with labetalol IV with reduction but developed vision changes and chest pain. Head and neck, CTA were negative. Chest CTA showed a AA measuring 4.6 cm with suspic ion for size increment. S/P consultation with [facility] , the ED provider, Dr Abreu was reassured that the AAA was stable. The patient symptoms resolved with additional labetalol with BP down to 134/86. The ED provider communicated with Dr Le for admission to the medical surgical floor for further observation, management and pheochromocytoma work-up. Blood work was negative for actionable findings, troponin negative X2 and EKG showed no signs of coronary occlusion. The patient had no recurring symptoms and antihypertensive adjusted. Amlodipine low daily dose well tolerated and metoprolol tartrate adjusted to previous dosing of 25 mg PO BID. The patient will have to follow-up with her PCP for further antihypertensive dosing adjustment within 7 days of discharge. 24-hour urinary fractionated catecholamines, metanephrines, and 3-methoxytyramine collection completed and follow-up needed as per PCP. ASCVD 10 y risk 4.8% and total CVD risk of 8.4%, patient reporting stopping statin therapy. Discussed with Dr. Le Recommendations for Follow Up Recommended tests to be ordered by follow up provider: Follow-up 24-hour urinary fractionated catecholamines, metanephrines, and 3-methoxytyramine, outpatient echocardiogram, F/u with [facility] Home Meds and New Rx's Prescriptions: New metoprolol tartrate 25 mg Tablet 25 mg PO BID Qty: 60 0RF amlodipine 2.5 mg tablet 2.5 mg PO DAILY Qty: 30 0RF Continued multivitamin Tablet 2 tab PO DAILY Patient Comments: UltraMega for Women over 50 Discontinued metoprolol tartrate 50 mg tablet 50 mg PO BID Qty: 30 0RF No Action (DME) Breast Prosthesis Left See Rx Instructions .Route .MEDSUPPLY Qty: 1 0RF Rx Instructions: Left Breast Mastectomy: new breast prosthesis and mastectomy bras. (DME) Mastectomy Bras See Rx Instructions .Route .MEDSUPPLY Qty: 4 1RF Rx Instructions: I am in need of a prescription for a new breast prosthesis and mastectomy bras. I have to go to [facility] in [facility]. Discharge Instructions Instructions: High Blood Pressure ED, Low-sodium diet Stand Alone Forms: Portal Information Referrals: Crystal Noble APRN [Primary Care Provider, Family Practice] Referral Note: Follow-up with 7 days of discharge Activity:: Activity as Tolerated Equipment/Supplies:: No Equipment Needed Diet:: heart healtthy l- no added sodium DS: Summary Time Spent with Patient providing and/or coordinating discharge services: Greater than 30 minutes Status at Discharge Functional status at discharge: independent ambulation Overall status at discharge: patient is progressing back to baseline Mental Status: mental status grossly normal Speech and Movement: speech and movement normal Mood: congruent mood Affect: normal affect Exam Narrative Exam Narrative: Alert and oriented X4, no neurological deficit, unlabored breathing and clear l S1 S2 regular , no murmur , abdomen is non-acute - no rash or lesion on exposed skin, minimal chronic 2X3 dark spot ( [id number] looking) to braden-umbilical area, move all 4 ext. Psych Mental Status: mental status grossly normal Speech and Movement: speech and movement normal Mood: congruent mood Affect: normal affect DS: Data Vitals/I&O Vitals and I&O: Vital Signs Temperature 36.6 C 08/02/25 11:13 Temperature Source Temporal Artery Scan 08/02/25 11:13 Pulse 69 08/02/25 11:13 Pulse Rhythm Regular 08/01/25 16:29 Pulse 96 H 08/01/25 13:20 Respiratory Rate 15 08/02/25 11:13 Respiratory Effort Normal 08/01/25 16:29 Respiratory Depth Normal 08/01/25 16:29 Respiratory Pattern Normal 08/01/25 16:29 Blood Pressure 132/91 H 08/02/25 11:13 Blood Pressure Mean 104 08/02/25 11:13 Blood Pressure Position Sitting 08/01/25 03:04 Pulse Oximetry 98 08/02/25 11:13 Oxygen Delivery Method Room Air 08/02/25 11:13 Oxygen Flow Rate 0 08/02/25 11:13 Pain Level 0 08/02/25 11:13 Comment the nurse has been notified about BP. 08/02/25 03:53 Intake & Output 08/01/25 08/02/25 08/02/25 23:59 11:59 23:59 Intake Total 1280 / 1280 Output Total 150 / 150 1800 / 1800 Balance -140 / -140 -520 / -520 Weight 56.336 kg 56.6 kg Intake: IV Oral 1280 / 1280 Output: Urine 150 / 150 1800 / 1800 Other: Urine Color Yellow Pale Yellow Urine Appearance Clear Clear Urine Odor Normal Normal Comment urine dumped at 1523, 24 hr urine to start now Data Completed and Pending Pending Labs at Discharge: 08/01/25 08/01/25 08/01/25 03:25 04:30 06:13 WBC 6.29 RBC 4.58 Hgb 13.8 Hct 41.6 MCV 91 MCH 30.1 MCHC 33.2 RDW 14.1 Plt Count 294 MPV 9.6 Immature Gran % 0.3 Neutrophils % 60.9 Lymphocytes % 28.1 Monocytes % 9.2 Eosinophils % 1.0 Basophils % 0.5 Nucleated RBC % 0.0 Absolute Neutrophils 3.83 Absolute Lymphocytes 1.77 Absolute Monocytes 0.58 Absolute Eosinophils 0.06 Absolute Basophils 0.03 Sodium 142 Potassium 3.7 Chloride 106 Carbon Dioxide 26.3 Anion Gap 9.7 BUN 13 Creatinine 0.67 Est GFR (CKD-EPI 2020) 86.80 Glucose 94 Calcium 9.7 Magnesium Total Bilirubin 0.6 AST 41 H ALT 44 Alkaline Phosphatase 99 Troponin I < 3 < 3 Cancelled NT-Pro-B Natriuret Pep 90 Total Protein 7.3 Albumin 4.7 08/01/25 08/01/25 08/02/25 11:30 14:43 05:57 WBC 5.16 RBC 4.30 Hgb 13.1 Hct 39.5 MCV 92 MCH 30.5 MCHC 33.2 RDW 14.5 Plt Count 249 MPV 9.8 Immature Gran % 0.2 Neutrophils % 58.5 Lymphocytes % 27.9 Monocytes % 10.5 Eosinophils % 2.3 Basophils % 0.6 Nucleated RBC % 0.0 Absolute Neutrophils 3.02 Absolute Lymphocytes 1.44 Absolute Monocytes 0.54 Absolute Eosinophils 0.12 Absolute Basophils 0.03 Sodium 146 H Potassium 3.9 Chloride 108 H Carbon Dioxide 29.1 Anion Gap 8.9 BUN 10 Creatinine 0.74 Est GFR (CKD-EPI 2020) 77.39 Glucose 91 Calcium 9.9 Magnesium 2.0 Total Bilirubin 0.6 AST 26 ALT 32 Alkaline Phosphatase 82 Troponin I 3 4 NT-Pro-B Natriuret Pep Total Protein 6.4 Albumin 4.1 PFSH All Active Problems (Updated 08/01/25 @ 09:38 by Donnie Abreu MD) Chest discomfort (Acute) Visual disturbance (Acute) Hypertensive urgency (Acute) Screening for breast cancer (Acute) Hypertension (Chronic) Preventative health care (Acute) Elevated cholesterol (Chronic) Aortic aneurysm (Chronic) 08/16/24 [facility] Cardio notes a 4.3cm dilated ascending aorta; increased from 4.2cm from 06/2019 imaging. Vasovagal response (Acute) Possible partial etiology for flushing/anx/tachycardia reaction .. [ ] keep open to confirm? Abdominal pain (Acute) and bloating x1 week. Not getting any worse or better. Keeping her awake at night. Having normal bowel movement... which relieves abd pn to some degree..denies nausea, vomiting, or fever. wondering about diverticulitis.. Fluid collection of pancreas (Acute) vs mass per review of 12/2022 [place]) [place] [place] Abnormal finding of diagnostic imaging (Acute) Pancreatic cyst (?) per [facility] (CTA?) --> Pancr fluid colltn ([facility])(CT?) --> [ ] MRI Abdominal mass (Acute) Fluid collection vs attenuating focus per MRI ([facility]), 12/2022 .. Incidental finding @ CTA ([facility]), 10/14/22: hypoattenuating focus between pancreas/duodenum .. mri/mrcp, pancreatic protocol recommended Presence of left breast prosthesis (Acute) Finger deformity (Chronic) Presumed arthritis, no pain Mucoid cyst of joint (Acute) left foot, 2nd toe (with irritation from overlapping great toe) Thoracic aneurysm without mention of rupture (Chronic) Fusiform prominence per 10/2022 CTA ([facility]).. Ascending Aortic Aneurysm (last measure 4.3cm (10/2021, [facility] CTA)(increasing in size ~0.1 per year). Will provide surgery at 5cm) per pt report. ID'd on CXR (for PNA)(~2018). Followed by [facility] Thoracic Surg. [ ] Imaging? 10/14/22 Dr Ho, Cardiac Surgery, CT showed 4.2cm - unchanged since 2019 Dehydration (Chronic) Poor hydration, trying to improve. Wondering about renal function. Elevated serum GGT level (Acute) Denies high alcohol use per chart review, 02/2022, SVT (supraventricular tachycardia) (Acute) Family history of benign parathyroid tumor (Acute) Late Dx in mo (90s) .. is there a genetic pre-disposition? Tachycardia (Acute) Episodic per chart review, 02/2022, jose Medical History Elevated lipase Post-mastectomy deformity of breast Family history of thyroid disease Mo (nodules). Bro (cancer?) Family history of aortic aneurysm Mo had repair surgery Postmenopausal Skin lesions, generalized Benji Keratosis, Hx NEG pathologies of excisions Oral lesion Positive D-dimer post leg pain, ~ 2018 .. DVT Neg per pt report. Pneumonia with Hx bronchitis becoming PNA (serious PNA @ 3yo).. No Hx asthma/Immune Dz. Hx of malignant neoplasm of female breast 1991- s/p mastectomy .. Left breast. No reconstruction (prosth). No Chemo, Rad. [ ] Genetic Testing? Surgical History Status post left mastectomy Breast, Mastectomy (~1991) left breast Biopsy, Soft Tissue (09/29/17) right breast Family History Mother Essential hypertension Aneurysm and dissection of heart ? asc. aorta Thyroid cancer Parathyroid dysfunction Cancer Hypertension Father , age 73 Essential hypertension Parkinson's disease Thyroid cancer Alcohol use disorder Paternal Grandfather Heart disease Maternal Grandmother Essential hypertension Paternal Grandmother Heart disease Brother H/O partial thyroidectomy uncertain if this was for cancer Cancer Maternal Aunt ALS (amyotrophic lateral sclerosis) Lung cancer Maternal Aunt Lung cancer Social History Smoking/Tobacco Use Status: Never Tobacco: How many years used: 0 Second Hand Exposure: Yes Smoking risk assessment performed?: Yes Alcohol Intake: current Alcohol Intake frequency: a few times a week Alcohol type: hard liquor Drug use: Never Substance use type: does not use Adopted: No Caregiver/Support person: No Foster care: No Household members: spouse Housing: house Number of Children: 3 number of grandchildren: 2 Communication Needs: None Education Level: college Details: Bachelor's Degree Do you need help understanding health information?: Never 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 Pets and animals: No Sexually active: Yes Do you think of yourself as: straight/heterosexual Current gender identity: female What is your relationship status?: How often do you talk on the phone with friends or family?: three or more times per week How often do you get together with friends or relatives?: three or more times per week Do you belong to any clubs or organized social groups?: yes Panel score (0-1 are the most socially isolated patients): 3 What type of physical activity do you participate in: walking Duration: 15-30 minutes/day Frequency: daily Daphney/Congregation: [employer] Special daphney needs: No Seatbelt use: always Helmet use: No (N/A) Drive intox or ride w/intox security patrol driver: No Do you feel safe at home: Yes Do you feel safe in your relationship?: Yes Female Reproductive History Menstrual Menopause type: natural History History 3 Para 3 Hx # Term Pregnancies Multiple births Hx # Pregnancies Ectopic pregnancies AB induced Hx Number of Living Children AB spontaneous Time Spent with Patient Time Spent with Patient: >85 minutes Time was spent: preparing to see the patient(eg.review tests), obtaining and/or reviewing separately otained hiistory, ordering medications,tests, procedures, referring, communicating with other health child day care teacher, indepentently interpreting results, counseling the patient, care coordination and other
--- NOTE | 2025-08-02 14:28 | CHAPLAIN ---
Gerda was sitting up in bed when I visited, she had just finished placing her meal orders. Gerda remembered that we had met when her mother in law , in the same room, a few years ago. I asked if she wanted to move to another room, and she said no, explaining that she's a realist and my family knows where to find me here. Gerda explained that she came in for hypertension and is being observed while here medication is being changed up.
--- NOTE | 2025-08-02 16:18 | PDOC.CMDIS ---
Date of service: 08/02/25 Time of Service: 16:18 LACE Index Scoring Tool Questions: Length of Stay (in days): 1 Was the patient admitted via the E.D.?: Yes E.D. Visits: 2 Answers: Total Score: 6 Risk of Readmission: Low Risk Care Management Discharge Plan Reason for Hospitalization: Hypertensive urgency/emergency Discharge Plan: Gerda will be discharged home with no new services indicated. It is recommended she follow up with her community providers, [facility], and discharge plan of care. She will transport home via private vehicle. Patient/Family Education Needs: Review of discharge instructions, activity, limitations, and plan of care. Discuss ask me three.
== END 2025-08-02 16:48 | disposition home or self-care (01) ==
LOC: ER 09:38 → MS 14:57
PROVIDERS: Student in an Organized Health Care Education/Training Program; Admitting Provider Family Medicine; Emergency Provider Student in an Organized Health Care Education/Training Program; PCP Nurse Practitioner Family; Responsible Provider Nurse Practitioner Acute Care; Visit Provider Family Medicine
DX: I16.0 Hypertensive urgency (principal); R07.89 Other chest pain; H53.8 Other visual disturbances; I10 Essential (primary) hypertension; I47.10 Supraventricular tachycardia, unspecified; E78.5 Hyperlipidemia, unspecified; Z79.899 Other long term (current) drug therapy; I71.21 Aneurysm of the ascending aorta, without rupture; Z85.3 Personal history of malignant neoplasm of breast; Z90.12 Acquired absence of left breast and nipple
CPT/HCPCS: 00123; 36415; 70496; 70498; 71275; 80053; 93005; 96374; 99285; J1650; 81050; 83735; 83835; 83880; 84484; 85025; 93010; 99223; 99239; G0378; J1920; J3490